=== PATIENT | male | born 1960 | race Caucasian/White ===

== ENCOUNTER 2021-12-24 08:43 | Outpatient (REF) | payer MEDICARE, MEDICAID, SELFPAY ==
[2021-12-24 08:57] LABS: MANUAL DIFF FLAG NO
[2021-12-24 09:13] LABS: Basophils Absolute Auto 0.1 X10*3/uL (0.0-0.2); Basophils Percent Auto 0.8 % (0-2); Eosinophils Absolute Auto 0.1 X10*3/uL (0.0-0.4); Eosinophils Percent Auto 2.1 % (0-4); Hematocrit 46.1 % (42.0-52.0); Hemoglobin 15.1 g/dl (14.0-18.0); Imm Gran Abs Auto 0.02 X10*3/uL (0.00-0.03); Imm Gran Pct Auto 0.3 % (0.0-0.4); Lymphocytes Absolute Auto 1.3 X10*3/uL (1.2-4.9); Lymphocytes Percent Auto 20.5 % (20-40); Mean Corpuscular HGB Conc 32.8 g/dl (31.0-36.0); Mean Corpuscular Hemoglobin 29.3 pg (27.0-33.0); Mean Corpuscular Volume 89.5 fL (80.0-98.0); Mean Platelet Volume 9.6 fL (9.4-12.4); Monocytes Absolute Auto 0.4 X10*3/uL (0.1-1.2); Monocytes Percent Auto 5.9 % (2-11); Neutrophils Absolute Auto 4.4 x10*3/uL (2.0-8.3); Neutrophils Percent Auto 70.4 % (45-73); Platelet Count 263 X10*3/uL (160-400); Red Blood Count 5.15 X10*6/uL (4.60-5.80); Red Cell Distribution Width 11.9 % (11.0-16.0); White Blood Count 6.2 X10*3/uL (4.8-10.8)
[2021-12-24 10:10] LABS: Erythrocyte Sedimentation Rate 3 MM/HR (0-15)
[2021-12-24 10:33] LABS: C Reactive Protein 0.15 mg/dL (< or = 0.50)
== END 2021-12-24 08:44 | disposition home or self-care (01) ==
LOC: HO.LAB 08:43
PROVIDERS: PCP Internal Medicine; Visit Provider Internal Medicine Rheumatology
DX: M47.816 Spondylosis without myelopathy or radiculopathy, lumbar region (principal); M47.812 Spondylosis without myelopathy or radiculopathy, cervical region; M79.7 Fibromyalgia; R53.83 Other fatigue; Z79.899 Other long term (current) drug therapy
CPT/HCPCS: 36415; 85025; 85652; 86140; 99212

== ENCOUNTER 2022-07-18 08:58 | Outpatient (REF) | payer MEDICARE, MEDICAID, SELFPAY | END 2022-07-18 08:59 | disposition home or self-care (01) | LOC: HO.LAB 08:58 | PROVIDERS: Visit Provider Family Medicine | DX: Z13.89 Encounter for screening for other disorder (principal) ==

== ENCOUNTER 2022-07-18 09:28 | Outpatient (REF) | payer MEDICARE, MEDICAID, SELFPAY ==
--- NOTE | ~2022-07-18 | XR_ITS ---
EXAMINATION: XR CHEST CLINICAL INFORMATION: Chest pain. COMPARISON: None TECHNIQUE: 2 views of the chest were obtained. FINDINGS: No significant abnormality is noted involving the heart, lungs, mediastinum, bony thorax or soft tissues. XR/XR chest 2V IMPRESSION: No acute cardiopulmonary process.
== END 2022-07-18 09:29 | disposition home or self-care (01) ==
LOC: HO.HMGCX 09:28
PROVIDERS: PCP Internal Medicine; Visit Provider Family Medicine
DX: R09.89 Other specified symptoms and signs involving the circulatory and respiratory systems (principal); R05.9 Cough, unspecified; R07.9 Chest pain, unspecified; Z20.822 Contact with and (suspected) exposure to COVID-19
CPT/HCPCS: 0241U; 71046

== ENCOUNTER 2022-07-18 11:21 | Outpatient (REF) | payer MEDICARE, MEDICAID, SELFPAY ==
[2022-07-18 12:29] LABS: Influenza A PCR NEGATIVE (Negative); Influenza B PCR NEGATIVE (Negative); Resp Syncy Virus RNA Qual PCR POSITIVE (Negative); SARS COV2 PCR INHOUSE NEGATIVE (Negative)
== END 2022-07-18 11:22 | disposition home or self-care (01) ==
LOC: HO.LNP 11:21
PROVIDERS: Visit Provider Family Medicine
DX: Z13.89 Encounter for screening for other disorder (principal)
CPT/HCPCS: 0241U

== ENCOUNTER → 2022-09-15 08:01 | Outpatient (BNVA) | payer MEDICARE, MEDICAID, SELFPAY | PROVIDERS: PCP Internal Medicine; Visit Provider Internal Medicine Rheumatology | DX: M47.816 Spondylosis without myelopathy or radiculopathy, lumbar region (principal); M79.7 Fibromyalgia; M47.812 Spondylosis without myelopathy or radiculopathy, cervical region; M45.9 Ankylosing spondylitis of unspecified sites in spine; Z86.69 Personal history of other diseases of the nervous system and sense organs; Z79.899 Other long term (current) drug therapy | CPT/HCPCS: 36415; 85025; 85652; 86140; 86481; 99212 ==

== ENCOUNTER 2022-09-15 08:43 | Outpatient (REF) | payer MEDICARE, MEDICAID, SELFPAY ==
[2022-09-15 10:43] LABS: MANUAL DIFF FLAG NO
[2022-09-15 10:55] LABS: Basophils Absolute Auto 0.1 X10*3/uL (0.0-0.2); Basophils Percent Auto 0.9 % (0-2); Eosinophils Absolute Auto 0.1 X10*3/uL (0.0-0.4); Eosinophils Percent Auto 1.8 % (0-4); Hematocrit 45.8 % (42.0-52.0); Hemoglobin 15.5 g/dl (14.0-18.0); Imm Gran Abs Auto 0.02 X10*3/uL (0.00-0.03); Imm Gran Pct Auto 0.3 % (0.0-0.4); Lymphocytes Absolute Auto 1.6 X10*3/uL (1.2-4.9); Lymphocytes Percent Auto 23.1 % (20-40); Mean Corpuscular HGB Conc 33.8 g/dl (31.0-36.0); Mean Corpuscular Hemoglobin 30.7 pg (27.0-33.0); Mean Corpuscular Volume 90.7 fL (80.0-98.0); Mean Platelet Volume 10.8 fL (9.4-12.4); Monocytes Absolute Auto 0.5 X10*3/uL (0.1-1.2); Monocytes Percent Auto 7.1 % (2-11); Neutrophils Absolute Auto 4.5 x10*3/uL (2.0-8.3); Neutrophils Percent Auto 66.8 % (45-73); Platelet Count 231 X10*3/uL (160-400); Red Blood Count 5.05 X10*6/uL (4.60-5.80); Red Cell Distribution Width 12.2 % (11.0-16.0); White Blood Count 6.8 X10*3/uL (4.8-10.8)
[2022-09-15 11:25] LABS: C Reactive Protein < 0.10 mg/dL (< or = 0.50)
[2022-09-15 11:38] LABS: Erythrocyte Sedimentation Rate 1 MM/HR (0-15)
[2022-09-18 12:03] LABS: TS Negative Control Passed; TS Panel A 0; TS Panel B 0; TS Positive Control Passed; TSpotTB Negative (Negative)
== END 2022-09-15 08:44 | disposition home or self-care (01) ==
LOC: HO.10HDL 08:43
PROVIDERS: Visit Provider Internal Medicine Rheumatology
DX: Z13.89 Encounter for screening for other disorder (principal)
CPT/HCPCS: 36415; 85025; 85652; 86140; 86481

== ENCOUNTER 2023-03-16 08:02 | Outpatient (AMB) | payer MEDICARE, MEDICAID, SELFPAY ==
[2023-03-16 08:09] VITALS: BP 110/60; PULSE 80; TEMP 36.6; O2SAT 100; BMI 21.6
--- NOTE | 2023-03-16 08:09 | A.OFFVIS_ITS ---
Intake Vital Signs 3 03/16/23 08:09 Height 5 ft 6 in Weight 133 lb 9.602 oz BMI 21.6 BP 110/60 Blood Pressure Location Lt brachial Position Sitting Pulse 80 Pulse Source Pulse Oximeter Temp 98 F Temp Source Skin Pulse Oximetry (%) 100 Oxygen Delivery Method Room Air Intake Visit Reasons: as Intake Note: Patient is here for follow up. Discharge Planner Required: No Accompanied by: Self / Same As Patient Allergies duloxetine [From Cymbalta] Allergy (Intermediate, Verified 03/16/23 08:13) increased pain HPI HPI Comments 2 History of Present Illness0 Details The patient returns for evaluation of his ankylosing spondylitis, fibromyalgia, and osteoarthritis involving the cervical and lumbar spine. He says overall his pains have been worse in early February. He had developed some painful swelling of the left 3rd MCP region. He had a small cyst there before. He did visit the urgent care at [place]. The ER note was reviewed. They questioned gout and or infection; prednisone was prescribed. Eventually he saw the PCP who prescribed antibiotics and prednisone and the pain and drainage resolved. It does not sound like there was any aspiration of the area or laboratory examination of the fluid. There is some still some slight swelling and a cystic structure present there. He did see hand surgery and excision of the cystic structure is planned for June. There is no pain there now. He is now back on the Enbrel for about 3 weeks. The neck and back pain worsened when he was off it. He has had no recent ocular symptoms to suggest iritis. [facility] Medical History (Updated 03/16/23 @ 20:03 by Milan Valerio MD) Ankylosing spondylitis Fatigue BPH (benign prostatic hyperplasia) GERD (gastroesophageal reflux disease) Hypertension History of iritis Fibromyalgia Osteoarthritis of lumbar spine Cervical osteoarthritis Spondylarthritis Family History Mother Hypertension Father Hypertension Diabetes Sister Hypertension Social History Household Members: Spouse Housing: House Are you a primary care manager cna to a significant other at home: No Do you presently have visiting nurse or other home services: No 75 years or older and lives alone: No Alcohol intake: never Patient Tobacco Use Status: Former Tobacco user Years Smoked: Quit 1997 e-Cigarette/Vaping Use: Never Used service: No Current occupational status: retired and disabled Review of Systems Const Details: Negative for appetite change, weight change, fever, chills, malaise and fatigue Eyes Details: Negative for vision change, dry eyes,headaches and dizziness ENT Details: Negative for hearing change, tinnitus, oral ulcer, nose bleeds and oral dryness. Card Details: Negative chest pain, edema and syncope Resp Details: Negative for SOB, cough and wheezing GI Details: Negative indigestion/heartburn, nausea, abdominal pain, bowel changes, diarrhea, constipation and bloody stool. Skin/Breast Details: Negative for itching, rash, hives, Raynaud's symptoms, sun sensitivity, and skin cancer Neuro Details: Negative for epilepsy, palsy, stroke, changes in speech, tingling and weakness Psych Details: Negative for anxiety, depression and stress Endo Details: Negative for polyuria and polydypsia Levi/Lymph Details: Negative for excessive bruising or bleeding. Physical Exam Vital Signs: Last Vital Signs Temp 98 F 03/16/23 08:09 Pulse 80 03/16/23 08:09 BP 110/60 03/16/23 08:09 Pulse Ox 100 03/16/23 08:09 Oxygen Delivery Method Room Air 03/16/23 08:09 BMI result Body Mass Index 21.6 APPEARANCE: Patient in no acute distress EYES no redness, pupils equal and reactive to light, eyelids normal EXTREMITIES: No edema, no calf tenderness, normal peripheral pulses. JOINT EXAM: Cervical Spine:.? Mild pain discomfort with lateral flexion at 10 degrees or rotation at 45 degrees to either side.? Some slight cervical muscle tenderness. Thoracic Spine:.? No scoliosis.? No tenderness on palpation. Lumbar Spine:.? Alignment normal.? Mild pain with more than 45 degrees of flexion.? There is some left paraspinal muscle spasm.? No tenderness over the vertebral spines.? Straight leg raising on left causes buttock and thigh pain at about 30 degrees. Chest Wall:.? No tenderness, swelling, increased warmth or erythema. Hands: Right: Normal pain-free range of motion. There is some slight nontender bony enlargement at the thumb IP and the 2nd 3rd PIP joints. No soft tissue swelling or triggering. Elsewhere there is no tenderness, swelling, increased warmth or erythema. Able to make a full fist and has a good loss prevention auditor strength. Left: Pain-free range of motion of the joints. There is nontender bony enlargement at the thumb IP and the 2nd and 3rd PIP joints. Over the 3rd MCP there is a cystic structure. This seems to be mobile and free from connection with the joint structures. It is not tender. There is no drainage or redness evident today. Other joints are without swelling or tenderness. Photograph of the left hand: Wrists:.? Normal pain-free range of motion without tenderness, swelling, increased warmth or erythema. Elbows:. Normal pain-free range of motion without tenderness, swelling, increased warmth or erythema. Shoulders:.?? Full range of motion without pain. No tenderness, weakness, swelling, increased warmth or erythema. Hips:.? Full range of motion with some buttock and lumbar pain at the extremes of internal or external rotation in either hip. No groin pain with motion. Hip bursa:.? No tenderness. Knees:.?? Normal pain-free range of motion without tenderness, swelling, increased warmth or erythema.? There is no effusion or crepitation Ankles:.? Normal pain-free range of motion without tenderness, swelling, increased warmth or erythema. Feet:.? Normal pain-free range of motion without tenderness, swelling, increased warmth or erythema. Tender points:? Mild tenderness to digital palpation at the lateral epicondyles, trapezius, second rib, greater trochanter and gluteal area bilaterally. ?? Results Reviewed Results Reviewed: February 07 lab work from [facility]: White count 11.5, hemoglobin 14.4, creatinine 1.0, uric acid 5.9 February 07 x-ray reported as showing some soft tissue swelling but no bony changes. Assessment & Plan Assessment & Plan (1) Osteoarthritis of lumbar spine: Code(s): M47.816 - Spondylosis without myelopathy or radiculopathy, lumbar region (2) History of iritis: Comment: Recurrent episodes; none since Enbrel Code(s): Z86.69 - Personal history of other diseases of the nervous system and sense organs (3) Cervical osteoarthritis: Code(s): M47.812 - Spondylosis without myelopathy or radiculopathy, cervical region (4) Long-term use of immunosuppressant medication: Code(s): Z79.899 - Other skilled nursing (current) drug therapy (5) Dermoid inclusion cyst: Code(s): L72.0 - Epidermal cyst (6) Ankylosing spondylitis: Comment: History of recurrent iritis. Questionable sacroiliitis on SI joint films but there was some SI joint bone edema on MRI. 2013 Enbrel started with some improvement Code(s): M45.9 - Ankylosing spondylitis of unspecified sites in spine Plan Ankylosing spondylitis with some worsening of some of his symptoms related to having to stop the Enbrel. This was because of a cystic structure in the left hand that looked infected. This could be a gouty tophus although it has pretty much subsided at this point. The greater likelihood is that this was an inclusion cyst in the skin or tendon that became infected. It will be surgically explored apparently in June so we may get a more definitive answer. Lab work at the time showed minimal elevation of the white count and a normal uric acid. He does not recall any prior episodes of gout although he did have swelling and pain in the right elbow in the past. At one point xrays showed some osteoarthritis. His widespread fatigue and muscle pains continue. We think this is due to his fibromyalgia. The cervical and lumbar pain of course also is likely due to his underlying osteoarthritis. When he does have the surgery I told him to hold the Enbrel the week before and not to restart it until the stitches were out and there were no signs of local infection. Coding Level of Care Code Est Pt Level 4 (76703) Diagnoses Osteoarthritis of lumbar spine M47.816 History of iritis Z86.69 Cervical osteoarthritis M47.812 Long-term use of immunosuppressant medication Z79.899 Dermoid inclusion cyst L72.0 Ankylosing spondylitis M45.9
== END 2023-03-16 08:32 | disposition home or self-care (01) ==
PROVIDERS: PCP Internal Medicine; Visit Provider Internal Medicine Rheumatology
DX: M47.816 Spondylosis without myelopathy or radiculopathy, lumbar region (principal); Z86.69 Personal history of other diseases of the nervous system and sense organs; M47.812 Spondylosis without myelopathy or radiculopathy, cervical region; Z79.899 Other long term (current) drug therapy; L72.0 Epidermal cyst; M45.9 Ankylosing spondylitis of unspecified sites in spine
CPT/HCPCS: 99214

== ENCOUNTER → 2023-03-16 08:02 | Outpatient (BNVA) | payer MEDICARE, MEDICAID, SELFPAY | PROVIDERS: PCP Internal Medicine; Visit Provider Internal Medicine Rheumatology | DX: M47.816 Spondylosis without myelopathy or radiculopathy, lumbar region (principal); M47.812 Spondylosis without myelopathy or radiculopathy, cervical region; L72.0 Epidermal cyst; M45.9 Ankylosing spondylitis of unspecified sites in spine; Z79.899 Other long term (current) drug therapy; Z86.69 Personal history of other diseases of the nervous system and sense organs | CPT/HCPCS: 99212 ==

== ENCOUNTER 2023-08-25 11:09 | Outpatient (AMB) | payer MEDICARE, MEDICAID, SELFPAY ==
[2023-08-25 11:22] VITALS: BP 144/82; PULSE 86; TEMP 36.4; O2SAT 97; BMI 22.1
--- NOTE | 2023-08-25 11:22 | MHC.OFFVIS ---
Intake Vital Signs 08/25/23 11:22 Height 5 ft 6 in Weight 137 lb 2.04 oz BMI 22.1 BP 144/82 H Blood Pressure Location Rt brachial Position Sitting Pulse 86 Pulse Source Pulse Oximeter Temp 97.6 F Temp Source Skin Pulse Oximetry (%) 97 Oxygen Delivery Method Room Air Intake Visit Reasons: Intake Note: Patient last seen by Dr Valerio on 03/16/23 presents today for follow up. Online Content Editor Required: No Accompanied by: Self / Same As Patient Allergies duloxetine [From Cymbalta] Allergy (Intermediate, Verified 08/25/23 11:29) increased pain Medication List - Last Reconciled 08/25/23 by Crystal Vargas MD acetaminophen (Tylenol Extra Strength) 1,000 mg PO Q6H PRN alfuzosin ER 10 mg PO DAILY atropine 1% drps ophthalmic (eye) azelastine 1 spray intranasal BID cyclobenzaprine 10 mg PO BEDTIME difluprednate 0.05% drps ophthalmic (eye) etanercept (Enbrel SureClick) 50 mg subcut QWEEK famotidine 20 mg PO DAILY lisinopril 2.5 mg PO DAILY lisinopril 10 mg PO DAILY oxycodone-acetaminophen 5-325 mg (Percocet) 1.5 tabs PO DAILY tamsulosin 0.4 mg PO DAILY tobramycin 0.3% drps ophthalmic (eye) HPI HPI Comments History of Present Illness Details 62-year-old male with ankylosing spondylitis returns for follow-up. Patient stated that the swelling on his left 3rd MCP self-resolved and surgical exploration was canceled. He states that he was doing well overall until July when he developed an upper respiratory tract infection and was quite sick. He held his Enbrel for about 6 weeks. For 2 or 3 weeks now he has been having worsening generalized pain in his neck, lower back, hips. Two weeks ago he was having significant left elbow pain to the point that he could not hold a coffee cup. About a week ago he started having right eye pain and photosensitivity. He was just evaluated by police academy program coordinator yesterday and prescribed steroid eyedrops. He is wearing sunglasses today. He just restarted his Enbrel a week ago Most recent history by Dr. Valerio 03/2023: The patient returns for evaluation of his ankylosing spondylitis, fibromyalgia, and osteoarthritis involving the cervical and lumbar spine. He says overall his pains have been worse in early February. He had developed some painful swelling of the left 3rd MCP region. He had a small cyst there before. He did visit the urgent care at [place]. The ER note was reviewed. They questioned gout and or infection; prednisone was prescribed. Eventually he saw the PCP who prescribed antibiotics and prednisone and the pain and drainage resolved. It does not sound like there was any aspiration of the area or laboratory examination of the fluid. There is some still some slight swelling and a cystic structure present there. He did see hand surgery and excision of the cystic structure is planned for June. There is no pain there now. He is now back on the Enbrel for about 3 weeks. The neck and back pain worsened when he was off it. He has had no recent ocular symptoms to suggest iritis. [facility] Medical History Ankylosing spondylitis Fatigue BPH (benign prostatic hyperplasia) GERD (gastroesophageal reflux disease) Hypertension History of iritis Fibromyalgia Osteoarthritis of lumbar spine Cervical osteoarthritis Spondylarthritis Family History Mother Hypertension Father Hypertension Diabetes Sister Hypertension Social History Household Members: Spouse Housing: House Are you a primary health care recruiter to a significant other at home: No Do you presently have visiting nurse or other home services: No 75 years or older and lives alone: No Alcohol intake: never Patient Tobacco Use Status: Former Tobacco user Years Smoked: Quit 1997 e-Cigarette/Vaping Use: Never Used service: No Current occupational status: retired and disabled Review of Systems Eyes Reports blurry vision, Reports eye pain and Reports photophobia ENT Reports neck pain Musc Reports back pain, Reports arthralgias, Reports limited range of motion and Reports neck pain Physical Exam Vital Signs: Last Vital Signs Temp 97.6 F 08/25/23 11:22 Pulse 86 08/25/23 11:22 BP 144/82 H 08/25/23 11:22 Pulse Ox 97 08/25/23 11:22 Oxygen Delivery Method Room Air 08/25/23 11:22 BMI result Body Mass Index 22.1 Const General: cooperative, healthy appearing and comfortable Nutritional Appearance: average body habitus Orientation/consciousness: patient oriented x3 Limitations: no limitations HEENT Head: Yes normocephalic and Yes atraumatic Mouth: moist mucous membranes Eyes Other: Right eye erythema around the iris Direct Ophthalmoscopy: photophobia Resp Effort & Inspection: normal respiratory effort and able to speak in complete sentences Auscultation: clear to auscultation bilaterally Cardio Rate: regular rate Skin General skin exam: no rashes or lesions noted Neuro General: patient oriented x3 Extrem Other: Mild tenderness at the left common extensor origin at the left lateral epicondyle No active synovitis otherwise Some neck pain with neck flexion to the right Mildly limited lateral flexion test bilaterally Augusto test 10-15 cm Bilateral straight leg raise test causes ipsilateral hip pain Bilateral ANGELA test causes ipsilateral hip pain Assessment & Plan Assessment & Plan (1) Ankylosing spondylitis: Comment: History of recurrent iritis. Questionable sacroiliitis on SI joint films but there was some SI joint bone edema on MRI. 2013 Enbrel started with some improvement Code(s): M45.9 - Ankylosing spondylitis of unspecified sites in spine Qualifiers: Ankylosing spondylitis location: multiple sites in spine Qualified Code(s): M45.0 - Ankylosing spondylitis of multiple sites in spine Plan: 62-year-old male with ankylosing spondylitis presents for follow-up. He used to follow-up with Dr. Valerio. This is his 1st visit with me. Patient had an upper respiratory tract infection back in July of 2023 and held Enbrel for about 6 weeks with resultant flare up of his arthritis and flare up of right eye iritis last week. His respiratory infection resolved. He just restarted his Enbrel a week ago. Advised patient to continue with Enbrel weekly. Labs before next visit in 2 months (2) History of iritis: Comment: Recurrent episodes; none since Enbrel, flare 08/2023 in the context of holding Enbrel due to URTI Code(s): Z86.69 - Personal history of other diseases of the nervous system and sense organs Plan: Flare of right eye iritis, started last week, recently evaluated by police academy program coordinator and started on steroid eyedrops. Hopefully once patient is back on Enbrel regularly, this will improve.. Can consider switching to Humira if there is no improvement (3) Long-term use of immunosuppressant medication: Code(s): Z79.899 - Other termite technician (current) drug therapy Plan: Will monitor safety labs and Infectious screening labs before next visit Plan I spent 35 minutes reviewing patient's chart, evaluating patient, ordering diagnostic workup, counseling patient and documenting in the chart Orders: Orders Complete Blood Count Auto Diff 2 Months M45.9 - Ankylosing spondylitis of unspecified sites in spine Comprehensive Met. Panel 2 Months M45.9 - Ankylosing spondylitis of unspecified sites in spine C Reactive Protein 2 Months M45.9 - Ankylosing spondylitis of unspecified sites in spine Erythrocyte Sedimentation Rate 2 Months M45.9 - Ankylosing spondylitis of unspecified sites in spine Hepatitis A,B,C Profile 2 Months Z11.59 - Encounter for screening for other viral diseases T Spot TB 2 Months Z11.7 - Encounter for testing for latent tuberculosis infection HLA B27 2 Months M45.9 - Ankylosing spondylitis of unspecified sites in spine, Z86.69 - Personal history of other diseases of the nervous system and sense organs Coding Level of Care Code Est Pt Level 4 (94834) Diagnoses Ankylosing spondylitis of multiple sites in spine M45.0 Ankylosing spondylitis location: multiple sites in spine History of iritis Z86.69 Long-term use of immunosuppressant medication Z79.899
== END 2023-08-25 11:48 | disposition home or self-care (01) ==
PROVIDERS: PCP Internal Medicine; Visit Provider Student in an Organized Health Care Education/Training Program
DX: M45.0 Ankylosing spondylitis of multiple sites in spine (principal); Z86.69 Personal history of other diseases of the nervous system and sense organs; Z79.899 Other long term (current) drug therapy
CPT/HCPCS: 99214

== ENCOUNTER → 2023-08-25 11:09 | Outpatient (BNVA) | payer MEDICARE, MEDICAID, SELFPAY | PROVIDERS: PCP Internal Medicine; Visit Provider Student in an Organized Health Care Education/Training Program | DX: M45.0 Ankylosing spondylitis of multiple sites in spine (principal); Z86.69 Personal history of other diseases of the nervous system and sense organs; Z79.899 Other long term (current) drug therapy | CPT/HCPCS: 99212 ==

== ENCOUNTER 2023-10-22 09:28 | Outpatient (REF) | payer MEDICARE, MEDICAID, SELFPAY ==
[2023-10-22 10:02] LABS: MANUAL DIFF FLAG NO
[2023-10-22 10:37] LABS: Basophils Absolute Auto 0.1 X10*3/uL (0.0-0.2); Basophils Percent Auto 1.1 % (0-2); Eosinophils Absolute Auto 0.1 X10*3/uL (0.0-0.4); Eosinophils Percent Auto 1.5 % (0-4); Hematocrit 47.3 % (42.0-52.0); Hemoglobin 16.1 g/dl (14.0-18.0); Imm Gran Abs Auto 0.02 X10*3/uL (0.00-0.03); Imm Gran Pct Auto 0.3 % (0.0-0.4); Lymphocytes Absolute Auto 1.8 X10*3/uL (1.2-4.9); Lymphocytes Percent Auto 27.7 % (20-40); Mean Corpuscular Hemoglobin 30.6 pg (27.0-33.0); Mean Corpuscular Volume 89.9 fL (80.0-98.0); Mean Platelet Volume 9.9 fL (9.4-12.4); Monocytes Absolute Auto 0.5 X10*3/uL (0.1-1.2); Monocytes Percent Auto 7.3 % (2-11); Neutrophils Percent Auto 62.1 % (45-73); Platelet Count 253 X10*3/uL (160-400); Red Blood Count 5.26 X10*6/uL (4.60-5.80); Red Cell Distribution Width 11.9 % (11.0-16.0); White Blood Count 6.5 X10*3/uL (4.8-10.8)
[2023-10-22 11:17] LABS: Alanine Aminotransferase 17 U/L (0-40); Albumin Level 4.7 g/dL (3.5-5.0); Alkaline Phosphatase 70 U/L (39-117); Anion Gap 10 (12-20); Aspartate Amino Transferase 24 U/L (5-37); Blood Urea Nitrogen 12 mg/dL (9-16); C Reactive Protein 0.12 mg/dL (< or = 0.50); Calcium 10.2 mg/dL (8.4-10.2); Carbon Dioxide 30 mmol/L (22-29); Chloride 107 mmol/L (96-108); Estimated Glomerular Filt Rate > 60; Glucose Random 86 mg/dL (60-115); Potassium 4.1 mmol/L (3.3-5.1); Sodium 143 mmol/L (135-145); Total Protein 7.5 g/dL (6.5-8.0)
[2023-10-22 11:21] LABS: Erythrocyte Sedimentation Rate 2 MM/HR (0-15)
[2023-10-22 11:33] LABS: HBS Num1 0.15 mIU/mL (0-7.99); HBc Num1 0.08 S/CO (0.00-0.79); HBsAGNum1 0.35 S/CO (0.00-0.99); Hepatitis A Antibody IgM 0.12 Index (0-0.79); Hepatitis B Core Antibody Nonreactive (Nonreactive); Hepatitis B Surface Antigen Negative (Negative); ~HepC Num1 0.13 S/CO (0.00-0.79); ~Hepatitis A Antibody IgM Nonreactive (Nonreactive); ~Hepatitis B Surface Antibody NONREACTIVE (Nonreactive); ~Hepatitis C Antibody Nonreactive (Nonreactive)
[2023-10-25 12:58] LABS: TS Negative Control Passed; TS Panel A 0; TS Panel B 0; TS Positive Control Passed; TSpotTB Negative (Negative)
[2023-10-27 22:14] LABS: HLA B27 Positive (Negative)
== END 2023-10-22 09:29 | disposition home or self-care (01) ==
LOC: HO.LAB 09:28
PROVIDERS: PCP Internal Medicine; Visit Provider Student in an Organized Health Care Education/Training Program
DX: Z11.59 Encounter for screening for other viral diseases (principal); Z11.7 Encounter for testing for latent tuberculosis infection; M45.9 Ankylosing spondylitis of unspecified sites in spine; Z72.89 Other problems related to lifestyle; Z86.69 Personal history of other diseases of the nervous system and sense organs
CPT/HCPCS: 36415; 80053; 85025; 85652; 86140; 86481; 86704; 86706; 86709; 86803; 86812; 87340

== ENCOUNTER 2023-11-02 14:10 | Outpatient (AMB) | payer MEDICARE, MEDICAID, SELFPAY ==
[2023-11-02 14:28] VITALS: BP 138/82; PULSE 86; O2SAT 97; BMI 22.4
--- NOTE | 2023-11-02 14:28 | MHC.OFFVIS ---
Vital Signs 11/02/23 14:28 Height 5 ft 6 in Weight 138 lb 14.259 oz BMI 22.4 BP 138/82 Blood Pressure Location Rt brachial Position Sitting Pulse 86 Pulse Source Pulse Oximeter Pulse Oximetry (%) 97 Oxygen Delivery Method Room Air Intake Visit Reasons: Intake Note: Patient last seen 08/25/23 presents today for follow up and test results. L elbow pain Project Account Manager Required: No Accompanied by: Self / Same As Patient Allergies duloxetine [From Cymbalta] Allergy (Intermediate, Verified 11/02/23 14:34) increased pain Medication List - Last Reconciled 11/02/23 by Crystal Vargas MD acetaminophen (Tylenol Extra Strength) 1,000 mg PO Q6H PRN alfuzosin ER 10 mg PO DAILY atropine 1% drps ophthalmic (eye) azelastine 1 spray intranasal BID cyclobenzaprine 10 mg PO BEDTIME difluprednate 0.05% drps ophthalmic (eye) etanercept (Enbrel SureClick) 50 mg subcut QWEEK famotidine 20 mg PO DAILY finasteride 5 mg PO DAILY lisinopril 10 mg PO DAILY oxycodone-acetaminophen 5-325 mg (Percocet) 1.5 tabs PO DAILY tobramycin 0.3% drps ophthalmic (eye) HPI Comments Details: 62-year-old male with ankylosing spondylitis returns for follow-up. He has been on Enbrel regularly weekly for at least 10 weeks now. States that he is doing better overall. Back to his baseline. Has been having bilateral elbow pain a little worse on the left. Associated with burning and sensitivity. He also gets recurrent low back pain and right hip pain. Was evaluated by portable machine sander today, had a dilated eye exam and was told no steroid eyedrops are needed at that point. Most recent history by Dr. Valerio 03/2023: The patient returns for evaluation of his ankylosing spondylitis, fibromyalgia, and osteoarthritis involving the cervical and lumbar spine. He says overall his pains have been worse in early February. He had developed some painful swelling of the left 3rd MCP region. He had a small cyst there before. He did visit the urgent care at [place]. The ER note was reviewed. They questioned gout and or infection; prednisone was prescribed. Eventually he saw the PCP who prescribed antibiotics and prednisone and the pain and drainage resolved. It does not sound like there was any aspiration of the area or laboratory examination of the fluid. There is some still some slight swelling and a cystic structure present there. He did see hand surgery and excision of the cystic structure is planned for June. There is no pain there now. He is now back on the Enbrel for about 3 weeks. The neck and back pain worsened when he was off it. He has had no recent ocular symptoms to suggest iritis. [facility] Medical History Ankylosing spondylitis Fatigue BPH (benign prostatic hyperplasia) GERD (gastroesophageal reflux disease) Hypertension History of iritis Fibromyalgia Osteoarthritis of lumbar spine Cervical osteoarthritis Spondylarthritis Family History Mother Hypertension Father Hypertension Diabetes Sister Hypertension Social History Household Members: Spouse Housing: House Are you a primary customer care manager to a significant other at home: No Do you presently have visiting nurse or other home services: No 75 years or older and lives alone: No Alcohol intake: never Patient Tobacco Use Status: Former Tobacco user Years Smoked: Quit 1997 e-Cigarette/Vaping Use: Never Used service: No Current occupational status: retired and disabled Review of Systems Eyes Reports photophobia Musc Reports back pain, Reports arthralgias and Reports limited range of motion Physical Exam Vital Signs: Last Vital Signs Pulse 86 11/02/23 14:28 BP 138/82 11/02/23 14:28 Pulse Ox 97 11/02/23 14:28 Oxygen Delivery Method Room Air 11/02/23 14:28 BMI result Body Mass Index 22.4 Const General: cooperative, healthy appearing and comfortable Nutritional Appearance: average body habitus Orientation/consciousness: patient oriented x3 Limitations: no limitations HEENT Head: Yes normocephalic and Yes atraumatic Mouth: moist mucous membranes Eyes Other: No eye erythema bilaterally today Direct Ophthalmoscopy: photophobia Resp Effort & Inspection: normal respiratory effort and able to speak in complete sentences Auscultation: clear to auscultation bilaterally Cardio Rate: regular rate Skin General skin exam: no rashes or lesions noted Neuro General: patient oriented x3 Extrem Other: tenderness at the common extensor origin at the lateral epicondyle bilaterally with negative resisted wrist extension and negative resisted wrist flexion test. No swelling No active synovitis otherwise Mildly limited lateral flexion test bilaterally Augusto test 10-14 cm Bilateral straight leg raise test causes ipsilateral hip pain Negative Lisa test bilaterally Assessment & Plan Assessment & Plan (1) Ankylosing spondylitis: Comment: + HLA b27. Recurrent iritis. Questionable sacroiliitis on SI joint films but there was some SI joint bone edema on MRI. 2014 Enbrel started with some improvement Code(s): M45.9 - Ankylosing spondylitis of unspecified sites in spine Category: Medical Qualifiers: Ankylosing spondylitis location: multiple sites in spine Qualified Code(s): M45.0 - Ankylosing spondylitis of multiple sites in spine Plan: 62-year-old male with ankylosing spondylitis presents for follow-up. On Enbrel regularly. Doing quite well. He has a few tender joints but no swollen joints. Inflammatory markers are normal. Iritis episode resolved. Nothing to warrant any change in therapy. Continue with Enbrel 50 mg subcutaneously weekly. Flexeril refilled Labs before next visit in 4 months (2) History of iritis: Comment: Recurrent episodes; none since Enbrel, flare 08/2023 in the context of holding Enbrel due to URTI improved with steroid eyedrops Code(s): Z86.69 - Personal history of other diseases of the nervous system and sense organs Category: Medical Plan: Improved with steroid eyedrops. (3) Long-term use of immunosuppressant medication: Code(s): Z79.899 - Other half-way (current) drug therapy Category: Medical Plan: Hepatitis panel and T spot test negative 10/2023 Plan I spent 30 minutes reviewing patient's chart, evaluating patient, ordering diagnostic workup, counseling patient and documenting in the chart Orders: Orders C Reactive Protein 4 Months M45.0 - Ankylosing spondylitis of multiple sites in spine Erythrocyte Sedimentation Rate 4 Months M45.0 - Ankylosing spondylitis of multiple sites in spine Complete Blood Count Auto Diff 4 Months M45.0 - Ankylosing spondylitis of multiple sites in spine Comprehensive Met. Panel 4 Months M45.0 - Ankylosing spondylitis of multiple sites in spine Medications: Changed From cyclobenzaprine 10 mg PO BEDTIME To cyclobenzaprine orally bedtime PRN; take 1-2 tabs nightly as needed for muscle spasm 60 tabs 2RF muscle spasm Coding Level of Care Code Est Pt Level 4 (91959) Diagnoses Ankylosing spondylitis of multiple sites in spine M45.0 Ankylosing spondylitis location: multiple sites in spine History of iritis Z86.69 Long-term use of immunosuppressant medication Z79.891
== END 2023-11-02 14:54 | disposition home or self-care (01) ==
PROVIDERS: PCP Internal Medicine; Visit Provider Student in an Organized Health Care Education/Training Program
DX: M45.0 Ankylosing spondylitis of multiple sites in spine (principal); Z86.69 Personal history of other diseases of the nervous system and sense organs; Z79.899 Other long term (current) drug therapy
CPT/HCPCS: 99214

== ENCOUNTER → 2023-11-02 14:10 | Outpatient (BNVA) | payer MEDICARE, MEDICAID, SELFPAY | PROVIDERS: PCP Internal Medicine; Visit Provider Student in an Organized Health Care Education/Training Program | DX: M45.0 Ankylosing spondylitis of multiple sites in spine (principal); Z86.69 Personal history of other diseases of the nervous system and sense organs; Z79.899 Other long term (current) drug therapy | CPT/HCPCS: 99212 ==

== ENCOUNTER 2024-03-04 14:26 | Outpatient (REF) | payer MEDICARE, MEDICAID, SELFPAY ==
[2024-03-04 14:38] LABS: MANUAL DIFF FLAG NO
[2024-03-04 15:12] LABS: Basophils Absolute Auto 0.1 X10*3/uL (0.0-0.2); Basophils Percent Auto 0.7 % (0-2); Eosinophils Absolute Auto 0.1 X10*3/uL (0.0-0.4); Hematocrit 42.8 % (42.0-52.0); Hemoglobin 14.3 g/dl (14.0-18.0); Imm Gran Abs Auto 0.02 X10*3/uL (0.00-0.03); Imm Gran Pct Auto 0.2 % (0.0-0.4); Lymphocytes Absolute Auto 1.5 X10*3/uL (1.2-4.9); Lymphocytes Percent Auto 14.9 % (20-40); Mean Corpuscular HGB Conc 33.4 g/dl (31.0-36.0); Mean Corpuscular Hemoglobin 30.9 pg (27.0-33.0); Mean Corpuscular Volume 92.4 fL (80.0-98.0); Mean Platelet Volume 10.4 fL (9.4-12.4); Monocytes Absolute Auto 0.6 X10*3/uL (0.1-1.2); Monocytes Percent Auto 5.6 % (2-11); Neutrophils Absolute Auto 7.8 x10*3/uL (2.0-8.3); Neutrophils Percent Auto 77.6 % (45-73); Platelet Count 262 X10*3/uL (160-400); Red Blood Count 4.63 X10*6/uL (4.60-5.80); Red Cell Distribution Width 11.9 % (11.0-16.0)
[2024-03-04 15:35] LABS: Alanine Aminotransferase 15 U/L (0-40); Albumin Level 4.3 g/dL (3.5-5.0); Alkaline Phosphatase 74 U/L (39-117); Anion Gap 13 (12-20); Aspartate Amino Transferase 22 U/L (5-37); Blood Urea Nitrogen 10 mg/dL (9-16); C Reactive Protein 3.03 mg/dL (< or = 0.50); Calcium 9.9 mg/dL (8.4-10.2); Carbon Dioxide 26 mmol/L (22-29); Chloride 104 mmol/L (96-108); Estimated Glomerular Filt Rate > 60; Glucose Random 92 mg/dL (60-115); Sodium 139 mmol/L (135-145); Total Protein 7.1 g/dL (6.5-8.0)
[2024-03-04 16:18] LABS: Erythrocyte Sedimentation Rate 14 MM/HR (0-15)
== END 2024-03-04 14:27 | disposition home or self-care (01) ==
LOC: HO.LAB 14:26
PROVIDERS: Visit Provider Student in an Organized Health Care Education/Training Program
DX: M45.0 Ankylosing spondylitis of multiple sites in spine (principal)
CPT/HCPCS: 36415; 80053; 85025; 85652; 86140

== ENCOUNTER 2024-07-07 07:49 | Outpatient (AMB) | payer MEDICARE, MEDICAID, SELFPAY ==
--- NOTE | 2024-07-07 07:51 | A.OFFVIS_ITS ---
Vital Signs 07/07/24 07:56 Height 5 ft 6 in Weight 135 lb 9.349 oz BMI 21.9 BP 132/80 Blood Pressure Location Rt brachial Position Sitting Pulse 83 Pulse Source Pulse Oximeter Pulse Oximetry (%) 98 Oxygen Delivery Method Room Air Intake Visit Reasons: Intake Note: Patient presents for . Allergies duloxetine [From Cymbalta] Allergy (Intermediate, Verified 07/07/24 07:55) increased pain Medication List - Last Reconciled 07/07/24 by Crystal Vargas MD acetaminophen (Tylenol Extra Strength) 1,000 mg PO Q6H PRN alfuzosin ER 10 mg PO DAILY atropine 1% drps ophthalmic (eye) azelastine 1 spray intranasal BID cyclobenzaprine 5 - 10 mg (1 - 2 x 5 mg) PO BEDTIME PRN difluprednate 0.05% drps ophthalmic (eye) Enbrel SureClick (etanercept) 50 mg subcut QWEEK NS famotidine 20 mg PO DAILY finasteride 5 mg PO DAILY lisinopril 10 mg PO DAILY oxycodone-acetaminophen 5-325 mg (Percocet) 1.5 tabs PO DAILY tobramycin 0.3% drps ophthalmic (eye) HPI Comments Details: 63-year-old male with ankylosing spondylitis returns for follow-up. Remains on Enbrel weekly regularly. States that he has been doing reasonably well overall. No recent episode of iritis. Continues to have intermittent muscle aches, headaches, neck pain. Most recent history by Dr. Valerio 03/2023: The patient returns for evaluation of his ankylosing spondylitis, fibromyalgia, and osteoarthritis involving the cervical and lumbar spine. He says overall his pains have been worse in early February. He had developed some painful swelling of the left 3rd M CP region. He had a small cyst there before. He did visit the urgent care at [facility]. The ER note was reviewed. They questioned gout and or infection; prednisone was prescribed. Eventually he saw the PCP who prescribed antibiotics and prednisone and the pain and drainage resolved. It does not sound like there was any aspiration of the area or laboratory examination of the fluid. There is some still some slight swelling and a cystic structure present there. He did see hand surgery and excision of the cystic structure is planned for June. There is no pain there now. He is now back on the Enbrel for about 3 weeks. The neck and back pain worsened when he was off it. He has had no recent ocular symptoms to suggest iritis. [facility] Medical History Ankylosing spondylitis Fatigue BPH (benign prostatic hyperplasia) GERD (gastroesophageal reflux disease) Hypertension History of iritis Fibromyalgia Osteoarthritis of lumbar spine Cervical osteoarthritis Spondylarthritis Family History Mother Hypertension Father Hypertension Diabetes Sister Hypertension Social History Household Members: Spouse Housing: House Are you a primary geriatric personal care aide to a significant other at home: No Do you presently have visiting nurse or other home services: No 75 years or older and lives alone: No Alcohol intake: never Patient Tobacco Use Status: Former Tobacco user Years Smoked: Quit 1997 e-Cigarette/Vaping Use: Never Used service: No Current occupational status: retired and disabled Review of Systems Eyes Reports photophobia ENT Reports neck pain Musc Reports myalgias, Reports arthralgias and Reports neck pain Physical Exam Vital Signs: Last Vital Signs Pulse 83 07/07/24 07:56 BP 132/80 07/07/24 07:56 Pulse Ox 98 07/07/24 07:56 Oxygen Delivery Method Room Air 07/07/24 07:56 BMI result Body Mass Index 21.9 Const General: cooperative, healthy appearing and comfortable Nutritional Appearance: average body habitus Orientation/consciousness: patient oriented x3 Limitations: no limitations HEENT Head: Yes normocephalic and Yes atraumatic Mouth: moist mucous membranes Eyes Other: No eye erythema bilaterally today Direct Ophthalmoscopy: photophobia Resp Effort & Inspection: normal respiratory effort and able to speak in complete sentences Auscultation: clear to auscultation bilaterally Cardio Rate: regular rate Skin General skin exam: no rashes or lesions noted Neuro General: patient oriented x3 Extrem Other: No active synovitis noted today Assessment & Plan Assessment & Plan (1) Ankylosing spondylitis: Comment: + HLA b27. Recurrent iritis. Questionable sacroiliitis on SI joint films but there was some SI joint bone edema on MRI. 2013 Enbrel started with some improvement Code(s): M45.9 - Ankylosing spondylitis of unspecified sites in spine Category: Medical Qualifiers: Ankylosing spondylitis location: multiple sites in spine Qualified Code(s): M45.0 - Ankylosing spondylitis of multiple sites in spine Plan: 63-year-old male with ankylosing spondylitis presents for follow-up. On Enbrel regularly. Doing well overall. No active synovitis on exam. No symptoms suggestive of active iritis Continue with Enbrel 50 mg subcutaneously weekly. Labs before next visit in 6 months (2) Long-term use of immunosuppressant medication: Code(s): Z79.899 - Other skilled nursing (current) drug therapy Category: Medical Plan: Side effects of Enbrel were discussed with the patient in detail including increased risk of infection, demyelinating disease, reactivation of latent TB, possible increased risk of solid and skin tumors. Patient fully aware. Advised patient to seek medical care KHURRAM if patient has an infection and advised patient to stop the medication until the infection is resolved. (3) Fibromyalgia: Comment: Dx 1994, tried on SSRI, welbutrin, Provigil (insurance will not cover), Nata gave him headaches Some improvement with Cymbalta 30bid (10/12-02/11) but developed headache and stopped it. Savella not Helpful 2008 Code(s): M79.7 - Fibromyalgia Category: Medical Plan: Discussed management of fibromyalgia with patient. Is a noninflammatory, non- autoimmune central afferent processing disorder leading to a diffuse pain syndrome. I suggested that patient try to address his underlying psychiatric issues, anxiety/depression. I suggested evaluation by a therapist and/or a psychiatrist. \ Try to follow sleep hygiene practices. Consider a referral for a sleep study from PCP to rule out DAVID. Patient would benefit from increased physical activity, either through formal physical therapy or by joining a gym. Advised patient that she should start activity slowly and increase as tolerated. Patient walks for 20 minutes daily. Gets achy if he walks anymore than that. Advised patient to consider some light weight exercises such as light weights, aquatherapy, swimming Plan I spent 30 minutes reviewing patient's chart, evaluating patient, ordering diagnostic workup, counseling patient and documenting in the chart Orders: Orders C Reactive Protein 6 Months M45.0 - Ankylosing spondylitis of multiple sites in spine Erythrocyte Sedimentation Rate 6 Months M45.0 - Ankylosing spondylitis of multiple sites in spine Hepatitis A,B,C Profile 6 Months Z11.59 - Encounter for screening for other viral diseases T Spot TB 6 Months Z11.7 - Encounter for testing for latent tuberculosis infection Complete Blood Count Auto Diff 6 Months M45.0 - Ankylosing spondylitis of multiple sites in spine Comprehensive Met. Panel 6 Months M45.0 - Ankylosing spondylitis of multiple sites in spine Coding Level of Care Code Est Pt Level 4 (69472) Complex EM visit Add On G2211 Diagnoses Ankylosing spondylitis of multiple sites in spine M45.0 Ankylosing spondylitis location: multiple sites in spine Long-term use of immunosuppressant medication Z79.899 Fibromyalgia M79.7
[2024-07-07 07:56] VITALS: BP 132/80; PULSE 83; O2SAT 98; BMI 21.9
== END 2024-07-07 08:18 | disposition home or self-care (01) ==
PROVIDERS: PCP Internal Medicine; Visit Provider Student in an Organized Health Care Education/Training Program
DX: M45.0 Ankylosing spondylitis of multiple sites in spine (principal); Z79.899 Other long term (current) drug therapy; M79.7 Fibromyalgia
CPT/HCPCS: 99214; G2211

== ENCOUNTER → 2024-07-07 07:49 | Outpatient (BNVA) | payer MEDICARE, MEDICAID, SELFPAY | PROVIDERS: PCP Internal Medicine; Visit Provider Student in an Organized Health Care Education/Training Program | DX: M45.0 Ankylosing spondylitis of multiple sites in spine (principal); M79.7 Fibromyalgia; Z79.899 Other long term (current) drug therapy | CPT/HCPCS: 99212 ==

== ENCOUNTER 2024-12-13 14:23 | Outpatient (REF) | payer MEDICARE, MEDICAID, SELFPAY ==
[2024-12-13 14:42] LABS: MANUAL DIFF FLAG NO
[2024-12-13 14:52] LABS: Basophils Absolute Auto 0.1 X10*3/uL (0.0-0.2); Eosinophils Absolute Auto 0.1 X10*3/uL (0.0-0.4); Eosinophils Percent Auto 1.7 % (0-4); Hematocrit 42.1 % (42.0-52.0); Hemoglobin 14.7 g/dl (14.0-18.0); Imm Gran Abs Auto 0.02 X10*3/uL (0.00-0.03); Imm Gran Pct Auto 0.3 % (0.0-0.4); Lymphocytes Absolute Auto 1.7 X10*3/uL (1.2-4.9); Lymphocytes Percent Auto 23.5 % (20-40); Mean Corpuscular HGB Conc 34.9 g/dl (31.0-36.0); Mean Corpuscular Volume 88.8 fL (80.0-98.0); Mean Platelet Volume 10.2 fL (9.4-12.4); Monocytes Absolute Auto 0.5 X10*3/uL (0.1-1.2); Neutrophils Absolute Auto 4.7 x10*3/uL (2.0-8.3); Neutrophils Percent Auto 66.5 % (45-73); Platelet Count 216 X10*3/uL (160-400); Red Blood Count 4.74 X10*6/uL (4.60-5.80); Red Cell Distribution Width 11.7 % (11.0-16.0); White Blood Count 7.1 X10*3/uL (4.8-10.8)
[2024-12-13 15:30] LABS: Erythrocyte Sedimentation Rate 2 MM/HR (0-15)
[2024-12-13 15:35] LABS: Alanine Aminotransferase 24 U/L (0-40); Albumin Level 4.6 g/dL (3.5-5.0); Alkaline Phosphatase 64 U/L (39-117); Anion Gap 12 (12-20); Aspartate Amino Transferase 25 U/L (5-37); Bilirubin Total 0.5 mg/dL (0.0-1.0); Blood Urea Nitrogen 12 mg/dL (9-16); C Reactive Protein < 0.10 mg/dL (< or = 0.50); Calcium 9.5 mg/dL (8.4-10.2); Carbon Dioxide 28 mmol/L (22-29); Chloride 106 mmol/L (96-108); Estimated Glomerular Filt Rate > 60; Glucose Random 94 mg/dL (60-115); Potassium 4.2 mmol/L (3.3-5.1); Sodium 142 mmol/L (135-145); Total Protein 6.8 g/dL (6.5-8.0)
--- OUTSIDE RECORDS SUMMARY | 2024-12-13 17:22 | XMS_ITS | Clinical Summary ---
Author Organization [facility] [address] [facility] Address [address] [place] [address] Phone Care Team Providers Care Inspector Aligning Name Role Phone Vick Choi MD Primary Care Provider [phone] Allergies Active Allergy Reactions Criticality Noted Date Comments Duloxetine Headache 04/06/2009 After 3 months - better with DC of drug Medications alfuzosin (UROXATRAL) 10 mg 24 hr tablet Take 1 Tablet by mouth daily. 4 Active azelastine (ASTELIN) 137 mcg (0.1 %) nasal spray 1 [place] by Each Nare route daily. 9 Active cyclobenzaprine (FLEXERIL) 10 mg tablet TAKE 1 TO 2 TABLETS BY MOUTH AT BEDTIME NEEDED FOR MUSCLE SPASMS 4 Active EnbreL SureClick 50 mg/mL (1 mL) injection pen ADMINISTER 1 ML UNDER THE SKIN 1 TIME A WEEK 9 Active famotidine (PEPCID) 20 mg tablet Take 20 mg by mouth daily. Active finasteride (PROSCAR) 5 mg tablet Take 1 Tablet by mouth daily. 4 Active fluticasone HFA (Flovent HFA) 110 mcg/actuation inhaler Inhale 2 Puffs into the lungs 2 times daily. 9 Active lisinopriL (PRINIVIL,ZESTR IL) 10 mg tablet TAKE 1 TABLET BY MOUTH EVERY DAY 90 tablet 1 5 Active oxyCODONE-aceta minophen (PERCOCET) 5-325 mg per tablet Take 1 tablet by mouth every 6 (six) hours if needed for severe pain. Max Daily Amount: 4 tablets 50 tablet 5 Active Active Problems Problem Noted Date Diagnosed Date Elevated PSA 02/11/2024 Overview (05/26/2024): Minimally elevated PSA, under the setting of BPH, following with urology Dr. 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 Questionable sacroiliitis on SI joint films and some SI joint bone edema on MRI. 2013 Enbrel started with some improvement HTN (hypertension) 11/02/2012 Cervical osteoarthritis 11/05/2010 Generalized headaches 03/06/2009 Esophageal reflux 08/03/2006 Overview (05/26/2024): See note 08/18/17 Fibromyalgia 08/03/2006 Overview (05/26/2024): Dx 1994, tried on SSRI, welbutrin, Provigil (insurance will not cover), Lyrica gave him headaches Some improvement with Cymbalta 30bid (10/12-02/11) but devleoped headache and stopped it.Savella not Helpful 2009 Hypertrophy of prostate without urinary obstruct ion 07/10/2006 Overview (05/26/2024): Not responding to terazosin and flomax Chest pain 01/08/2006 Overview (05/26/2024): ETT (-) 2006 Encounters Date Type Department Care Team Description 11/24/2024 9:45 AM EDT Office Visit Adult Medicine [address] [phone] Vick Choi MD Chest pain, unspecified type (Primary Dx); Rapid heart beat 09/19/2024 10:30 AM EDT Ancillary Procedure [facility] [address] [place] [address] Chest pain, unspecified type; Tachycardia from Last 3 Months Immunizations Name Administration Dates Next Due PPD Test 09/02/2016,08/29/2013 Td Tetanus diptheria (Tdvax) 7yo and older 07/30,02/18/2005 Tdap Tetanus diptheria acell ular pertussis (Boostrix; Adacel) 7yo and older 12/31/2011 Surgical History Surgery Date Site/Laterality Comments COLONOSCOPY 03/09/12 PROCEDURE: HISTORICAL COLONOSCOPY; COMMENT: hemorrhoids; repeat in ten yrs CATARACT EXTRACTION 2013 PROCEDURE: HISTORICAL CATARACT REMOVAL; COMMENT: bilateral OTHER SURGICAL HISTORY 07/20 PROCEDURE: MO BIOPSY PROSTATE INCISIONAL ANY APPROACH; COMMENT: negative ROTATOR CUFF REPAIR -1989 Right PROCEDURE: HISTORICAL ROTATOR CUFF REPAIR Medical History Medical History Date Comments Chest pain, unspecified 01/08/2006 DX:Chest pain, unspecified Esophageal reflux DX:Esophageal reflux; COMMENT: H pylori (-) Myalgia and myositis, unspecified 08/03/2006 DX:Myalgia and myositis, unspecified; COMMENT: Dx 1994, tried on SSRI, welbutrin, provagil (insurance will not cover), lyrica Hypertrophy of prostate with out urinary obstruction and other lower urinary tract symptoms (LUTS) 07/10/2006 DX:Hypertrophy of prosta te without urinary obstruction and other lower urinary tract symptoms (LUTS) Chest pain, unspecified 01/08/2006 DX:Chest pain, unspecified; COMMENT: ETT (-) 2005 Myalgia and myositis, unspecified 08/03/2006 DX:Myalgia and myositis, unspecified; COMMENT: Dx 1994, tried on SSRI, welbutrin, provagil (insurance will not cover), lyrica Some improvement with Cymbalta 30bid (10/12) Cervical osteoarthritis 11/05/2010 DX:Cervi alba osteoarthritis HTN (hypertension) DX:HTN (hyper tension) History of iritis 08/15/2013 DX:History of iritis; COMMENT: Recurrent since 2012 Family History Medical History Relation Name Comments Diabetes Father Hypertension Father Hypertension Mother Hypertension Sister 1 Hypertension Sister 2 Relation Name Status Comments Father Alive Mother Alive Sister 1 Sister 2 Sister 3 Alive Social History Tobacco Use Types Packs/Day Years Used Date Smoking Tobacco: Former Smokeless Tobacco: Never Tobacco Cessation:Counseling Given: Not Answered Alcohol Use Standard Drinks/Week Comments No 0 (1 standard drink = 0.6 oz pur e alcohol) Housing Instability Answer Date Recorde d Are you worried that in the next 2 months you may not have stable housing? No 07/08/2024 Food Access & Nutrition Answer Date Rec orded Do you have access to a vari ety of food including fruits and vegetables? Yes 07/08/2024 Access to Healthcare Answer Date Record ed Within the last 3 months, ho w many times did you visit the emergency department for your medical care? 1 07/08/2024 Health Literacy Answer Date Recorded How often do you need to hav e someone help you when you read instructions, pamphlets, or other written material from your doctor or pharmacy? Never 07/08/2024 Caregiver: How often do you need to have someone help you when you read instructions, pamphlets, or other written material from your doctor or pharmacy? Not on file 07/08/2024 Financial Risk Answer Date Recorded How hard is it for you to pa y for the very basics like food, housing, medical care, and air conditioning / heating? Patient declined 07/08/2024 Transportation Answer Date Recorded Has the lack of transportati on kept you from meetings, work, or from getting things needed for daily living? No Has the lack of transportati on kept you from medical appointments or from getting medications? No 07/08/2024 Social Isolation Answer Date Recorded How often do you feel lonely or isolated from th ose around you? Never 07/08/2024 Food Risk Answer Date Recorded Within the past 12 months we worried whether our food would run out before we got money to buy more. Never true 07/08/2024 Within the past 12 months th e food we bought just didn't last and we didn't have money to get more. Never true 07/08/2024 Dependent Care Answer Date Recorded Do you need help finding or paying for care for your loved ones. For example, children's ministry director or elderly care for an older adult? No 07/08/2024 Education Answer Date Recorded Do you think completing more education or training, like finishing a GED, going to college, or learning a trade, would be helpful for you? No 07/08/2024 Employment and Income Answer Date Recor ded During the last four weeks, have you been actively looking for work? Unable to respond 07/08/2024 Living Situation Answer Date Recorded What is your living situation? 0 07/08/2024 Sex and Gender Information Value Date Recorded Sex Assigned at Male 06/16/2024 3:55 PM EST Legal Sex Male 10:20 AM EST Gender Identity Male 06/16/2024 3:55 PM EST Sexual Orientation Straight 06/16/2024 3: 55 PM EST Obstetrics History Last Filed Vital Signs Vital Sign Reading Time Taken Comments Blood Pressure 126/82 11/24/2024 9:38 AM EDT Pulse 70 11/24/2024 9:38 AM EDT Temperature 36.3 ??C (97.3 ??F) 11/24/2024 9:38 AM ED T Respiratory Rate 20 11/24/2024 9:38 AM EDT Oxygen Saturation 98% 08/25/2024 1:35 PM EST Inhaled Oxygen Concentration - - Weight 63 kg (139 lb) 11/24/2024 9:38 AM EDT Height 167.6 cm (5' 6 ) 11/24/2024 9:38 AM EDT Body Mass Index 22.44 11/24/2024 9:38 AM EDT Plan of Treatment Upcoming Encounters Date Type Department Care Team (Late st Contact Info) Description 02/24/2025 11:15 AM EDT Office Visit Adult Medicine [facility] [address] [place] [phone] Vick Choi MD [address] [place] [address] Health Maintenance Due Date Last Done Comments COVID-19 Vaccine (#1) 1965 Pneumococcal Vaccine: 50+ Years (1 of 1 - PCV) 12/15/2011 Zoster Vaccines (1 of 2) 12/15/2011 DTaP,Tdap,and Td Vaccines (4 - Td or Tdap) 12/30/2021 12/31/2011, 07/30/2008, 02/18/2005 Colorectal Cancer Screening: Colonoscopy 06/14/2022 HIV Screening 06/14/2022 Medicare Annual Wellness Visit 06/14/2022 Influenza Vaccine (Season Ended) 2025 Depression Screening 07/08/2025 07/08/2024 Social Influencers of Health Screening 07/08/2025 07/08/2024 Hypertension/CHF/CAD Annual BMP Blood Test 07/14/2025 07/14/2024, 02/02/2024, 02/02/2024 Cholesterol Screening (Lipid Panel) 07/18/2026 07/18/2021 RSV Immunization Adult Patients (1 - 1-dose 75+ series) 2036 Hepatitis C Screening Completed 09/20/2013 HIB Vaccines Aged Out No longer eligi ble based on patient's age to complete this topic HPV Vaccines Aged Out No longer eligi ble based on patient's age to complete this topic Hepatitis A Vaccines Aged Out No long er eligible based on patient's age to complete this topic Hepatitis B Vaccines Aged Out No long er eligible based on patient's age to complete this topic IPV Vaccines Aged Out No longer eligi ble based on patient's age to complete this topic MMR Vaccines Aged Out No longer eligi ble based on patient's age to complete this topic Meningococcal ACWY Vaccine Aged Out N o longer eligible based on patient's age to complete this topic Meningococcal B Vaccine Aged Out No l onger eligible based on patient's age to complete this topic Pneumococcal Vaccine: Pediatrics (0 to 5 Years) and At-Risk Patients (6 to 64 Years) Aged Out No longer eligible b ased on patient's age to complete this topic RSV Immunization Patients Under 20 months Aged Out No longer eligible b ased on patient's age to complete this topic Varicella Vaccines Aged Out No longer eligible based on patient's age to complete this topic Procedures Procedure Name Priority Date/Time Associated Diagnosis Comments TRANSTHORACIC ECHOCARDIOGRAM (TTE) COMPLETE Routine 09/19/2024 11:15 AM EDT Chest pain, unspecified type Tachycardia COMPREHENSIVE METABOLIC PANEL Routine 07/14/2024 12:01 PM EST Tachycardia Routine general medical examination at a health care facility LIPID PANEL Routine 07/18/2021 HM HEPATITIS C SCREENING Routine 09/20/2013 from Last 3 Months or Most Recently Relevant to Health Maintenance Results * (ABNORMAL) TRANSTHORACIC ECHOCARDIOGRAM (TTE) COMPLETE (09/19/2024 11:15 AM EDT) Left Atrium Minor [place] 5.0 cm CV PACS Left Atrium Major [place] 4.5 cm CV PACS LA Area Sys (A2C) 11 cm2 CV PACS LA Area Sys (A4C) 12 cm2 CV PACS LA Volume (BP) 26 mL CV PACS LA Size 3.3 cm CV PACS RA Area 10.8 cm2 CV PACS RA 2D Volume 20 mL CV PACS AV Mean Gradient 3 mmHg CV PACS AV Mean Gradient 3 mmHg CV PACS Ao VTI 22.4 cm CV PACS AV Peak Jacinto 1.3 m/s CV PACS AV Peak Gradient 7 mmHg CV PACS AV Area Continuity Equation 2.4 cm2 CV PACS AV Area Peak Velocity 2.3 cm2 CV PACS Aortic Arch 2.8 cm CV PACS Ascending Aorta 3.2 cm CV PACS Aortic Sinus Valsalva 3.5 cm CV PACS IVC Proximal 1.0 cm CV PACS IVSD 1.0 0.6 - 1.0 cm CV PACS LVIDD 4.4 4.2 - 5.8 cm CV PACS LVIDS 2.7 2.5 - 4.0 cm CV PACS LVOT Diameter 2.0 cm CV PACS LVOT Mean Jacinto 0.6 m/s CV PACS LVOT Mean Grad 2 mmHg CV PACS LVOT Mean Grad 2 mmHg CV PACS LVOT Peak VTI 17.1 cm CV PACS LVOT Peak Jacinto 1.0 m/s CV PACS LVOT Peak Gradient 4 mmHg CV PACS LVPWD 1.0 0.6 - 1.0 cm CV PACS MV E' Tissue Velocity Lateral 11 cm/s CV PACS MV E' Tissue Velocity Septal 7 cm/s CV PACS LVOT Area 3.1 cm2 CV PACS LVOT Stroke Volume 54 mL CV PACS MV Deceleration Cataño 3.7 m/s2 CV PACS E Wave Deceleration Time 155 119 - 242 ms CV PACS MV PHT 46 ms CV PACS MV Peak A Jacinto 0.70 m/s CV PACS MV Peak E Jacinto 0.59 m/s CV PACS MV Mean Gradient 1 mmHg CV PACS MV Mean Gradient 1 mmHg CV PACS MV Mean Gradient 1 mmHg CV PACS MV Mean Gradient 1 mmHg CV PACS MV VTI 23.1 cm CV PACS Mitral Valve Max Velocity 0.9 m/s CV PACS MV Peak Gradient 3 mmHg CV PACS MV Area PHT 4.8 cm2 CV PACS MV Area Continuity Equation 2.3 cm2 CV PACS PV Acceleration Time 130 ms CV PACS PV Mean Gradient 1 mmHg CV PACS PV Mean Gradient 1 mmHg CV PACS PV VTI 16.7 cm CV PACS PV Peak Velocity 0.9 m/s CV PACS PV Peak Gradient 3 mmHg CV PACS RV Diastolic Basal Dimension 3.2 2.5 - 4.1 cm CV PACS RV S' 11 cm/s CV PACS TAPSE 18 mm CV PACS E/E' Ratio Septal 8 CV PACS E/E' Ratio Averaged 7 CV PACS Relative Wall Thickness ratio 0.45 CV PACS LVOT:AV VTI Index 0.76 CV PACS FS 39 % CV PACS LV Mass 2D 148 g CV PACS MV VTI:LVOT VTI ratio 1.4 CV PACS LVOT flow 188 mL/s CV PACS AV Velocity Ratio 0.77 CV PACS E/A Ratio 0.8 CV PACS E/E' Ratio Lateral 5 CV PACS BSA 1.7 m2 CV PACS LA Volume Index (BP) 15 mL/m2 CV PACS LVIDD Index 2.59 cm/m2 CV PACS LVIDS Index 1.59 cm/m2 CV PACS LV Mass Index 2D 87 50 - 102 g/m2 CV PACS LVOT Stroke Index 32 mL/m2 CV PACS LA Dimension Index 2D 1.9 cm/m2 CV PACS RA 2D Volume Index 12(A) 18 - 32 mL/m2 CV PACS NEREIDA Index (VTI) 1.41 cm2/m2 CV PACS NEREIDA Index (Pk Jacinto) 1.35 cm2/m2 CV PACS Ascending Aorta Index 1.88 cm/m2 CV PACS Est. RA Pressure 3 mmHg CV PACS Anatomical Region Laterality Modality Ultrasound Narrative 09/19/2024 4:43 PM EDT ?Left ventricle cavity size is normal. Left ventricular systolic function is in the normal range with an ejection fraction of 65-70%. ?No regional LV wall motion abnormalities noted. ?Left ventricle wall thickness is normal. ?Right ventricle cavity is normal. ?Aortic valve leaflets are mildly thickened. ?Trace mitral insufficiency Left Ventricle Left ventricle cavity size is normal. Wall thickness is normal. Systolic function is normal with an ejection fraction of 65-70%. There are no regional LV wall motion abnormalities. There is abnormal septal motion. Right Ventricle Right ventricle cavity appears normal. Left Atrium Left atrium cavity size is normal. Right Atrium Right atrium cavity is normal. IVC/SVC Inferior vena cava structure is normal. RA pressures is estimated to be 3 mmHg (IVC diameter <21 mm and decreases >50% during inspiration). Mitral Valve The leaflets are mildly thickened. There is mild annular calcification. There is trace regurgitation. There is no evidence of mitral valve stenosis. Tricuspid Valve Tricuspid valve structure is normal. There is no significant regurgitation. Cannot assess RVSP. Aortic Valve The aortic valve is trileaflet. The leaflets are mildly thickened. There is no regurgitation or stenosis. Pulmonic Valve No significant pulmonic valve regurgitation. Ascending Aorta The aorta appears normal in size. Pericardium Pericardium appears normal. There is no pericardial effusion. Study Details Overall the study quality was adequate. Vick Choi MD CV ECHO PROCEDURES Final Result * Comprehensive metabolic panel (07/14/2024 12:01 PM EST) Sodium 141 133 - 145 mmol/L LAB CHEMISTRY METHOD 07/14/2024 6:16 PM [facility] Potassium 3.9 3.5 - 5.5 mmol/L LAB CHEMISTRY METHOD 07/14/2024 6:16 PM [facility] Chloride 107 96 - 110 mmol/L LAB CHEMISTRY METHOD 07/14/2024 6:16 PM [facility] CO2 28 21 - 32 mmol/L LAB CHEMISTRY METHOD 07/14/2024 6:16 PM [facility] Anion Gap 6 3 - 11 LAB CHEMISTRY METHOD 07/14/2024 6:16 PM [facility] Glucose 99 70 - 100 mg/dL LAB CHEMISTRY METHOD 07/14/2024 6:16 PM [facility] BUN 12 5 - 25 mg/dL LAB CHEMISTRY METHOD 07/14/2024 6:16 PM [facility] Creatinine 0.87 0.70 - 1.30 mg/dL LAB CHEMISTRY METHOD 07/14/2024 6:16 PM [facility] eGFR 98 >=60 mL/min/1. 73m2 LAB CHEMISTRY METHOD 07/14/2024 6:16 PM [facility] Comment:Calculation based on the??Chronic Kidney Disease Epidemiology Collaboration (CKD-EPI) equation refit??without adjustment for race. BUN/Creatinine Ratio 13.8 LAB CHEMISTRY METHOD 07/14/2024 6:16 PM [facility] Calcium 9.4 8.5 - 10.5 mg/dL LAB CHEMISTRY METHOD 07/14/2024 6:16 PM [facility] AST (SGOT) 20 10 - 42 unit/L LAB CHEMISTRY METHOD 07/14/2024 6:16 PM [facility] ALT (SGPT) 21 10 - 60 unit/L LAB CHEMISTRY METHOD 07/14/2024 6:16 PM [facility] Alkaline Phosphatase 66 42 - 121 unit/L LAB CHEMISTRY METHOD 07/14/2024 6:16 PM [facility] Total Protein 7.1 6.0 - 8.0 g/dL LAB CHEMISTRY METHOD 07/14/2024 6:16 PM [facility] Albumin 4.5 3.2 - 5.0 g/dL LAB CHEMISTRY METHOD 07/14/2024 6:16 PM [facility] Total Bilirubin 0.9 0.0 - 1.4 mg/dL LAB CHEMISTRY METHOD 07/14/2024 6:16 PM [facility] Blood Venous blood specimen / Unknown Venipuncture / Unknown 07/14/2024 12:01 PM EST 07/14/2024 12:01 PM EST Vick Choi MD LAB BLOOD ORDERABLES Final Resul t [facility] [address] [place] [address], * Lipid panel (07/18/2021) LDL/HDL Ratio 2 0 - 4 Triglycerides 38 0 - 150 mg/dL Cholesterol 150 0 - 200 mg/dL HDL 64 >=40 mg/dL LDL Cholesterol 79 0 - 100 mg/dL Blood Venous blood specimen / Unknown Dee Morgan MD LAB BLOOD ORDERABLES Mae l Result * Hepatitis C Screening (09/20/2013) Pathologist [facility] Hepatitis C Screening abstracted Historical Provider HEALTH MAINTENANCE Final Result from Last 3 Months or Most Recently Relevant to Health Maintenance Insurance MEDICARE [place] Care Teams Inspector Aligning Relationship Specialty Start Date End Date Vick Choi MD [address] [facility] [place] [address] PCP - General 05/05/1999
[2024-12-14 08:20] LABS: HBc Num1 0.06 S/CO (0.00-0.79); HBsAGNum1 0.37 S/CO (0.00-0.99); Hepatitis A Antibody IgM 0.15 Index (0-0.79); Hepatitis B Core Antibody Nonreactive (Nonreactive); Hepatitis B Surface Antigen Negative (Negative); ~HepC Num1 0.16 S/CO (0.00-0.79); ~Hepatitis A Antibody IgM Nonreactive (Nonreactive); ~Hepatitis B Surface Antibody NONREACTIVE (Nonreactive); ~Hepatitis C Antibody Nonreactive (Nonreactive)
[2024-12-16 20:09] LABS: TS Negative Control Passed; TS Panel A 0; TS Panel B 0; TS Positive Control Passed; TSpotTB Negative (Negative)
== END 2024-12-13 14:24 | disposition home or self-care (01) ==
LOC: HO.LAB 14:23
PROVIDERS: PCP Internal Medicine; Visit Provider Student in an Organized Health Care Education/Training Program
DX: M45.0 Ankylosing spondylitis of multiple sites in spine (principal)
CPT/HCPCS: 36415; 80053; 85025; 85652; 86140; 86481; 86704; 86706; 86709; 86803; 87340

== ENCOUNTER 2025-01-11 08:50 | Outpatient (AMB) | payer MEDICARE, MEDICAID, SELFPAY ==
--- NOTE | 2025-01-11 09:00 | A.OFFVIS_ITS ---
Vital Signs 01/11/25 09:04 Height 5 ft 6 in Weight 133 lb 9.602 oz BMI 21.6 BP 115/72 Blood Pressure Location Lt brachial Position Sitting Pulse 93 Pulse Source Pulse Oximeter Pulse Oximetry (%) 98 Oxygen Delivery Method Room Air Intake Visit Reasons: Intake Note: Patient presents for follow up. Allergies duloxetine (From Cymbalta) Allergy (Intermediate, Verified 01/11/25 09:03) increased pain Medication List - Last Reconciled 01/11/25 by Edna Borden MD acetaminophen (Tylenol Extra Strength) 1,000 mg PO Q6H PRN alfuzosin ER 10 mg PO DAILY azelastine 1 spray intranasal BID cyclobenzaprine 5 - 10 mg (1 - 2 x 5 mg) PO BEDTIME PRN Enbrel SureClick (etanercept) 50 mg subcut QWEEK NS famotidine 20 mg PO DAILY finasteride 5 mg PO DAILY lisinopril 10 mg PO DAILY oxycodone-acetaminophen 5-325 mg (Percocet) 1.5 tabs PO DAILY HPI Comments Details: Patient is a 64-year-old male with hypertension, GERD, BPH, polyarticular osteoarthritis (especially of the spine: C-spine/L-spine), fibromyalgia and ankylosing spondylitis here today for follow up Interval History: Patient last seen 07/[address] Vargas. - reasonably well overall - no iritis - intermittent muscle aches and neck pain - no changes to medication Today, - No change overall - Last saw opthal 07/2024, no evidence of iritis - Continues to have widespread pain and headaches Rheumatologic History: + HLA b27. Recurrent iritis. Questionable sacroiliitis on SI joint films but there was some SI joint bone edema on MRI. 2014 Enbrel started with some improvement Most recent history by Dr. Valerio 03/2023: The patient returns for evaluation of his ankylosing spondylitis, fibromyalgia, and osteoarthritis involving the cervical and lumbar spine. He says overall his pains have been worse in early February. He had developed some painful swelling of the left 3rd MCP region. He had a small cyst there before. He did visit the urgent care at [place]. The ER note was reviewed. They questioned gout and or infection; prednisone was prescribed. Eventually he saw the PCP who prescribed antibiotics and prednisone and the pain and drainage resolved. It does not sound like there was any aspiration of the area or laboratory examination of the fluid. There is some still some slight swelling and a cystic structure present there. He did see hand surgery and excision of the cystic structure is planned for June. There is no pain there now. He is now back on the Enbrel for about 3 weeks. The neck and back pain worsened when he was off it. He has had no recent ocular symptoms to suggest iritis. Fibromyalgia Dx 1994, tried on SSRI, welbutrin, Provigil (insurance will not cover), Lyrica gave him headaches Some improvement with Cymbalta 30bid (10/12-02/11) but developed headache and stopped it. Savella not Helpful 2008 Current Rheumatology Medication(s): Enbrel 50 mg sc weekly Cyclobenzaprine 5-10 mg nightly PFSH Medical History Ankylosing spondylitis Fatigue BPH (benign prostatic hyperplasia) GERD (gastroesophageal reflux disease) Hypertension History of iritis Fibromyalgia Osteoarthritis of lumbar spine Cervical osteoarthritis Spondylarthritis Family History Mother Hypertension Father Hypertension Diabetes Sister Hypertension Social History Household Members: Spouse Housing: House Are you a primary rn critical care to a significant other at home: No Do you presently have visiting nurse or other home services: No 75 years or older and lives alone: No Alcohol intake: never Patient Tobacco Use Status: Former Tobacco user Years Smoked: Quit 1997 e-Cigarette/Vaping Use: Never Used service: No Current occupational status: retired and disabled Review of Systems Const Details: Review of Systems Constitutional: Denies fever, chills, weight loss ENT: Denies vision changes, eye pain or eye redness, dental caries, dry mouth GI: Denies nausea, vomiting, diarrhea, abdominal pain, change in BM Pulm: Denies SOB, JOSEPH, hemoptysis, wheezing Cards: Denies chest pain, palpitations Skin: Denies Raynaud's, rash, nail changes, photosensitivity, HEARING AID DISPENSER: Denies headaches, weakness, paresthesias, recurrent falls MSK: as per HPI All other systems reviewed and are unremarkable except noted above Physical Exam Vital Signs: Last Vital Signs Pulse 93 07/09/25 09:04 BP 115/72 01/11/25 09:04 Pulse Ox 98 01/11/25 09:04 Oxygen Delivery Method Room Air 01/11/25 09:04 BMI result Body Mass Index 21.6 Vital signs reviewed Physical Examination CONSTITUITIONAL Patient alert and cooperative. Well appearing and in no apparent painful distress HEENT Conjunctiva and sclera clear. No lymphadenopathy. CHEST/RESPIRATORY SYSTEM Normal respiratory effort and able to speak in complete sentences. Clear to auscultation bilaterally. No crackles, rales, rhonchi, wheezes heard. CARDIAC SYSTEM Regular rate and rhythm. S1 and S2 heard no murmurs. Radial pulses intact bilaterally MSK Hands * Right Hand: Able to make a fist. No swelling or tenderness to palpation of these joints. No deformities noted. * Left Hand: Able to make a fist. No swelling or tenderness to palpation of these joints. No deformities noted. * Scattered Herbedens nodes noted bilaterally Wrists * Right Wrist: Full ROM. 70 degrees of wrist flexion, 80 degrees of wrist extens ion. No swelling or TTP * Left Wrist: Full ROM. 70 degrees of wrist flexion, 80 degrees of wrist extension. No swelling or TTP Elbows * Right Elbow: Full ROM. No swelling or TTP. Mild TTP of the lateral epicondyle * Left Elbow: Full ROM. No swelling or TTP. No TTP of the medial and lateral epicondyles Shoulders * Right shoulder: Full ROM. No swelling noted. No TTP of the AC joint, subacromial bursa or posterior shoulder * Left shoulder: Full ROM. No swelling noted. No TTP of the AC joint, subacromial bursa or posterior shoulder Hip bursa: No tenderness to palpation bilaterally Knees * Right knee: Full ROM. No swelling noted. No TTP of the knee joint lie or pes anserine bursa * Left knee: Full ROM. No swelling noted. No TTP of the knee joint lie or pes anserine bursa. Ankles * Right ankle: Good ankle dorsiflexion and plantar flexion. No swelling. No TTP of the ankle joint * Left ankle: Good ankle dorsiflexion and plantar flexion. No swelling. No TTP of the ankle joint Feet * Right foot: Positive squeeze test with TTP of the 1st MTP * Left foot: Negative squeeze test Tender points? * No tenderness to palpation of the bilateral trapezius, supraspinatus, anterior costochondral junctions, bilateral suboccipital muscle insertions SKIN No rashes Results Reviewed Results Reviewed: Laboratory Tests 12/13/24 14:38 WBC 7.1 RBC 4.74 Hgb 14.7 Hct 42.1 Plt Count 216 ESR 2 Sodium 142 Potassium 4.2 Chloride 106 Carbon Dioxide 28 BUN 12 Creatinine 0.80 AST 25 ALT 24 Alkaline Phosphatase 64 C-Reactive Protein < 0.10 Laboratory Tests 10/22/23 10:00 HLA-B27 Positive A Laboratory Tests 12/13/24 14:38 Hepatitis A IgM Ab Nonreactive Hep Bs Antigen Negative Hep Bs Antibody NONREACTIVE Hep B Core Total Ab Nonreactive Hepatitis C Ab (EIA) Nonreactive TB Test (T-Spot) Com Negative Assessment & Plan Assessment & Plan (1) Ankylosing spondylitis: Comment: + HLA b27. Recurrent iritis. Questionable sacroiliitis on SI joint films but there was some SI joint bone edema on MRI. 2013 Enbrel started with some improvement Code(s): M45.9 - Ankylosing spondylitis of unspecified sites in spine Category: Medical Qualifiers: Ankylosing spondylitis location: multiple sites in spine Qualified Code(s): M45.0 - Ankylosing spondylitis of multiple sites in spine Plan: #Ankylosing Spondylitis Patient is a 64 y.o. male with ankylosing spondylitis c/b iritis here today for follow up. Currently in remission based on no active iritis, normal inflammatory markers and no evidence of active synovitis or inflammatory disease on examination Plan - Enbrel 50mg SC every week - RTC 6 months - Labs before visit: CBC, CMP, ESR, CRP (2) Fibromyalgia: Comment: Dx 1994, tried on SSRI, welbutrin, Provigil (insurance will not cover), Lyrica gave him headaches Some improvement with Cymbalta 30bid (10/12-02/11) but developed headache and stopped it. Savella not Helpful 2008 Code(s): M79.7 - Fibromyalgia Category: Medical Plan: #Fibromyalgia Longstanding history of fibromyalgia. Has tried several therapies with no improvement Currently manages pain with percocet and cyclobenzaprine (3) Neck pain: Code(s): M54.2 - Cervicalgia Plan: #Neck pain Patient with known C spine and L spine degenerative disease. Will refer to pain management to see if they can offer any interventions (4) Encounter for monitoring of etanercept therapy: Code(s): Z51.81 - Encounter for therapeutic drug level monitoring; Z79.620 - tank terminal gauger (current) use of immunosuppressive biologic Plan: #Long-term Use of TNF Inhibitors: Enbrel Discussed with the patient the benefits and risks of TNF inhibitors for the management of the rheumatic condition Benefits include reduce pain, maintenance of remission and reduction of flares as well as progression of the disease Risks include injection sites/infusion reactions, serious infections (such as bacterial infections, opportunistic infections), malignancy, delaminating syndromes, autoimmune phenomena, CHF exacerbations, palmar plantar psoriasis and cytopenias Recommended rotating injection sites, and holding medication during and for up to 1 week after resolution of a febrile illness or open skin wound Plan I spent 30 minutes reviewing the record and labs, taking a history, examining the patient, discussing the treatment plan, ordering diagnostic work up and documenting in the medical record Orders: Orders Complete Blood Count Auto Diff 6 Months M45.0 - Ankylosing spondylitis of multiple sites in spine, M79.7 - Fibromyalgia Comprehensive Met. Panel 6 Months M45.0 - Ankylosing spondylitis of multiple sites in spine, M79.7 - Fibromyalgia C Reactive Protein 6 Months M45.0 - Ankylosing spondylitis of multiple sites in spine, M79.7 - Fibromyalgia Erythrocyte Sedimentation Rate 6 Months M45.0 - Ankylosing spondylitis of multiple sites in spine, M79.7 - Fibromyalgia Referrals Pain Management Referral M47.812 - Spondylosis without myelopathy or radiculopathy, cervical region, M47.816 - Spondylosis without myelopathy or radiculopathy, lumbar region Coding Level of Care Code Est Pt Level 4 (58567) Complex EM visit Add On G2211 Diagnoses Ankylosing spondylitis of multiple sites in spine M45.0 Ankylosing spondylitis location: multiple sites in spine Fibromyalgia M79.7 Neck pain M54.2 Encounter for monitoring of etanercept therapy Z51.81; Z79.460
--- OUTSIDE RECORDS SUMMARY | 2025-01-11 09:03 | XMS_ITS | Encounter Summary ---
Author Organization [facility] Address [address] [place] [address] Care Team Providers Care Dedicated Intermodal Truck Driver Name Role Phone Vick Choi MD Primary Care Provider [phone] Encounter Details Date Type Department Care Team Description 06/06/2013 Refill Rheumatology - [address] [address] Milan Valerio MD Social History Tobacco Use Types Packs/Day Years Used Date Smoking Tobacco: Former Comments:1988 Alcohol Use Standard Drinks/Week Comments No 0 (1 standard drink = 0.6 oz pur e alcohol) Sex Assigned at Date Recorded Not on file Job Start Date Occupation Industry Not on file Not on file Not on file documented as of this encounter Miscellaneous Notes * Telephone Encounter - Kaitlin Barrientos L.P.N. - 06/07/2013 10:14 AM EST Script written and is in patient pick-up. * Telephone Encounter - Kaitlin Barrientos L.P.N. - 06/07/2013 8:17 AM EST Controlled substance contract and last issue date of medication reviewed. Patient is due for medication. * Telephone Encounter - Kaitlin Iliana Das - 06/07/2013 8:16 AM ESTFrom: PADMINI AMBROSE JR To: Milan Valerio MD Sent: ThuJun 06, 2013 7:58 PM Subject: Medication Renewal Request Original authorizing provider: MD Padmini Camejo Jr. would like a refill of the following medications: oxycodone-acetaminophen (PERCOCET) 5-325 MG per tablet [Milan Valerio MD] Preferred pharmacy: in office pick-up Comment: documented in this encounter Plan of Treatment Not on file documented as of this encounter Visit Diagnoses Not on filedocumented in this encounter Care Teams Dedicated Intermodal Truck Driver Relationship Specialty Start Date End Date Vick Choi MD [address] [place] [id number] PCP - General 05/05/1999 documented as of this encounter
--- OUTSIDE RECORDS SUMMARY | 2025-01-11 09:03 | XMS_ITS | Clinical Summary ---
Author Organization [employer] Address [address] [facility] [address] [place] [address] Care Team Providers Care Returned Telephone Equipment Appraiser Name Role Phone PcpEric Unassigned Primary Care Provider U navailable Allergies Active Allergy Reactions Criticality Noted Date Comments Duloxetine Hcl 10/20/2022 Other reaction(s): pain in arms Medications etanercept (Enbrel) 50 MG/ML injection 1 mL. Acti ve cyclobenzaprine (Flexeril) 10 MG tablet 1 tablet in the morning and 1 tablet at noon and 1 tablet in the evening. Active azelastine (Astelin) 0.1 % nasal spray 1 puff in the morning and 1 puff in the evening. Active oxyCODONE-aceta minophen (Percocet) 5-325 MG tablet 1 tablet every 6 (six) hours if needed. Active alfuzosin ER (Uroxatral) 10 MG 24 hr tablet Take 10 mg by mouth Once per day. 09/25/2023 Active lisinopril 10 MG tablet Take 1 tablet by mouth Once per day. 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 Overview (11/02/2024): 2023 iritis flare right eye (OD) during lapse in enbrel injections Glaucoma suspect of both eyes 10/20/2022 Vitreous floaters of both eyes 10/20/2022 Lumbosacral spondylosis without myelopathy 07/20 History of iritis 08/15/2013 Overview (10/31/2022): Recurrent episodes; none since Enbrel HTN (hypertension) 11/02/2012 Cervical osteoarthritis 11/05/2010 Fibromyalgia 08/03/2006 Overview (08/24/2023): Dx 1994, tried on SSRI, welbutrin, Provigil (insurance will not cover), Lyrica gave him headaches Some improvement with Cymbalta 30bid (10/12-02/11) but devleoped headache and stopped it.Savella not Helpful 2008 Hypertrophy of prostate without urinary obstruct ion 07/10/2006 Overview (08/24/2023): Not responding to terazosin and flomax Encounters Date Type Department Care Team Description 11/02/2024 8:30 AM EDT Office Visit [facility] OPTOMETRY [address] [place] [address] Kathleen Santos, OD Glaucoma suspect of both eyes (Primary Dx); Presbyopia of both eyes 10/26/2024 Travel 10/13/2024 8:30 AM EDT Office Visit [facility] DENTAL [address] [place], [place] [id number] Tami Lindquist 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 (Primary Dx) from Last 3 Months Family History Medical History Relation Name Comments sister iritis infections Other Relation Name Status Comments Father Mother Other Social History Tobacco Use Types Packs/Day Years Used Date Smoking Tobacco: Former Cigarettes 1 8 - 1987 Tobacco Cessation:Counseling Given: Not Answered Sex and Gender Information Value Date Recorded Sex Assigned at Male 10/21/2022 12:56 PM EDT Legal Sex Male 8:38 PM EDT Gender Identity Male 10/21/2022 12:56 PM EDT Sexual Orientation Straight 10/21/2022 12 :56 PM EDT Last Filed Vital Signs Vital Sign Reading Time Taken Comments Blood Pressure 104/74 11/02/2024 8:27 AM EDT Pulse - - Temperature 36.3 C (97.3 F) 11/02/2024 8:27 AM EDT Respiratory Rate - - Oxygen Saturation - - Inhaled Oxygen Concentration - - Weight - - Height - - Body Mass Index - - Plan of Treatment Upcoming Encounters Date Type Department Care Team (Renan st Contact Info) Description 04/18/2025 10:10 AM EDT Office Visit [facility] D[facility] [address] [place] [address] Tami Lindquist Health Maintenance Due Date Last Done Comments CT Colonography 1961 Colonoscopy 1961 Colorectal Cancer Screening 1961 Depression Screening 1961 FIT DNA/Cologuard 1961 FIT 1961 FOBT 1961 HIV Screening 1961 Lipid Panel 1961 SDOH Screening 1961 Sigmoidoscopy 1961 Disability Screening 1961 Alcohol/Substance Use Screening 1973 Hepatitis C Screening 12/15/1979 Pneumococcal Vaccine: 50+ Years (1 of 1 - PCV) 12/15/2011 Zoster Vaccines (1 of 2) 12/15/2011 DTaP/Tdap/Td Vaccines (2 - Td or Tdap) 12/30/2021 12/31/2011, 07/30/2008, 02/18/2005 COVID-19 Vaccine ( - season) 2024 Influenza Vaccine (#1) 2025 Dental X-Ray: Bitewings 03/09/2025 03/08/2024 Dental Oral Exam 04/15/2025 10/13/2024, 09/2023, 12/25/2022 Dental Prophylaxis 04/15/2025 10/13/2024, 0 03/08/2024, 08/12/2023, Additional history exists Tobacco Screening 11/02/2025 11/02/2024 Dental X-Ray: Full Mouth 03/09/2027 03/08/2024 RSV Patients and Patients Aged 60 years or older (1 - 1-dose 75+ series) 2036 HIB Vaccines Aged Out No longer eligi [...] patient's age to complete this topic Meningococcal Vaccine Aged Out No thomas joey eligible based on patient's age to complete this topic RSV under 20 months Aged Out No longe r eligible based on patient's age to complete this topic Rotavirus Vaccines Aged Out No longer eligible based on patient's age to complete this topic Procedures Procedure Name Priority Date/Time Associated Diagnosis Comments OCT, OPTIC NERVE - OU - BOTH EYES Routine 11/02/2024 Glaucoma suspect of both eyes CASE PRESENTATION, DETAILED AND EXTENSIVE TREATMENT PLANNING Routine 10/13/2024 8:30 AM EDT Full PROPHYLAXIS - ADULT Routine 10/13/2024 8:30 AM EDT PERIODIC ORAL EVALUATION - ESTABLISHED PATIENT Routine 10/13/2024 8:30 AM EDT INTRAORAL - COMPLETE SERIES OF RADIOGRAPHIC IMAGES Routine 03/08/2024 9:00 AM EDT from Last 3 Months or Most Recently Relevant to Health Maintenance Results * OCT, Optic Nerve - OU - Both Eyes (11/02/2024) Impressions Kathleen Santos, OD - 11/02/2024 Right eye (OD): RNFL/GCC normal and stable Left eye (OS): RNFL/GCC normal and stable Kathleen Santos OD OPHTH TOMOGRAPHY Final Result from Last 3 Months Insurance MEDICARE [facility] STANDARD DENTAL-[facility] MEDICAID STAND ADULT DENTAL - [facility] FULL (MEDICAID) MEDICARE [facility] STANDARD Care Teams Returned Telephone Equipment Appraiser Relationship Specialty Start Date End Date Eric Aquino Unassigned PCP - General Family Medicine 11/03/22
--- OUTSIDE RECORDS SUMMARY | 2025-01-11 09:03 | XMS_ITS | Clinical Summary ---
Author Organization [facility] [address] [facility] Address [address] [place] [address] Phone Care Team Providers Care Production Expert Name Role Phone Vick Choi MD Primary Care Provider [phone] Allergies Active Allergy Reactions Criticality Noted Date Comments Duloxetine Headache 04/06/2009 After 3 months - better with DC of drug Medications alfuzosin (UROXATRAL) 10 mg 24 hr tablet Take 1 Tablet by mouth daily. 4 Active azelastine (ASTELIN) 137 mcg (0.1 %) nasal spray 1 [place] by Each Nare route daily. 9 Active cyclobenzaprin e (FLEXERIL) 10 mg tablet TAKE 1 TO [...] lungs 2 times daily. 9 Active lisinopriL (PRINIVIL,ZEST RIL) 10 mg tablet TAKE 1 TABLET BY MOUTH EVERY DAY 90 tablet 1 5 Active oxyCODONE-acet aminophen (PERCOCET) 5-325 mg per tablet Take 1 tablet by mouth every 6 (six) hours if needed for severe pain. Max Daily Amount: 4 tablets 50 tablet 5 Active oxyCODONE-acet aminophen (PERCOCET) 5-325 mg per tablet Take 1 tablet by mouth every 6 (six) hours if needed for severe pain. Max Daily Amount: 4 tablets 50 tablet 5 12/20/19 25 Discontinu ed(Reorder ) Active Problems Problem Noted Date Diagnosed Date Elevated PSA 02/11/2024 Overview (05/26/2024): Minimally elevated PSA, under the setting of BPH, following with urology Dr. Higuera Inclusion cyst 02/20/2023 Lumbosacral spondylosis without myelopathy 07/20 Osteoarthritis, localized, elbow 02/25/2016 Sacroiliitis ([facility] V24) 10/20/2013 Overview (05/26/2024): History of recurrent [...] 9:45 AM EDT Office Visit Adult Medicine [address] [phone] Vick Choi MD Chest pain, unspecified type (Primary Dx); Rapid heart beat from Last 3 Months Immunizations Name Administration [...] COMMENT: bilateral OTHER SURGICAL HISTORY 07/20 PROCEDURE: HI BIOPSY PROSTATE INCISIONAL ANY APPROACH; COMMENT: negative [...] care for your loved ones. For example, child development professor or elderly care for an older adult? [...] 70 11/24/2024 9:38 AM EDT Temperature 36.3 C (97.3 F) 11/24/2024 9:38 AM EDT Respiratory Rate 20 11/24/2024 9:38 AM EDT [...] 11:15 AM EDT Office Visit Adult Medicine [facility] [address] [place] [address] Vick Choi MD [address] [place] [address] 06/14/2025 10:50 AM EST Office Visit [facility] [address] [place] [address] Milan Wan MD [address] [place] [address] [address] [place] [address] Health Maintenance Due Date Last Done Comments COVID-19 Vaccine (#1) 1965 Pneumococcal Vaccine: 50+ Years (1 of 1 - PCV) 12/15/2011 Zoster Vaccines (1 of 2) 12/15/2011 DTaP,Tdap,and Td Vaccines (4 - Td or Tdap) 12/30/2021 12/31/2011, 07/30/2008, 02/18/2005 Colorectal Cancer Screening: Colonoscopy 06/14/2022 HIV Screening 06/14/2022 Medicare Annual Wellness Visit 06/14/2022 Influenza Vaccine (#1) 2025 Depression Screening 07/08/2025 07/08/2024 Social Influencers [...] Procedure Name Priority Date/Time Associated Diagnosis Comments EXTERNAL CLINICAL LAB 12/13/2024 EXTERNAL CLINICAL LAB 12/13/2024 COMPREHENSIVE METABOLIC PANEL Routine 07/14/2024 12:01 PM EST Tachycardia Routine general medical examination at a [facility] LIPID PANEL Routine 07/18/2021 HEPATITIS C SCREENING Routine 09/20/2013 from Last 3 Months or Most Recently Relevant to Health Maintenance Results * External clinical lab (12/13/2024) Only the most recent of2 resultswithin the time period is included. Provider [facility] LAB BLOOD ORDERABLES Fin al Result * Comprehensive metabolic panel (07/14/2024 12:01 PM EST) Sodium 141 133 - 145 mmol/L LAB CHEMISTRY METHOD 07/14/2024 6:16 PM [facility] Potassium 3.9 3.5 - 5.5 mmol/L LAB CHEMISTRY METHOD 07/14/2024 6:16 PM [facility] Chloride 107 96 - 110 mmol/L LAB CHEMISTRY METHOD 07/14/2024 6:16 PM [facility] CO2 28 21 - 32 mmol/L LAB CHEMISTRY METHOD 07/14/2024 6:16 PM [facility] Anion Gap 6 3 - 11 LAB CHEMISTRY METHOD 07/14/2024 6:16 PM [facility] Glucose 99 70 - 100 mg/dL LAB CHEMISTRY METHOD 07/14/2024 6:16 PM [facility] BUN 12 5 - 25 mg/dL LAB CHEMISTRY METHOD 07/14/2024 6:16 PM [facility] Creatinine 0.87 0.70 - 1.30 mg/dL LAB CHEMISTRY METHOD 07/14/2024 6:16 PM [facility] eGFR 98 >=60 mL/min/1. 73m2 LAB CHEMISTRY METHOD 07/14/2024 6:16 PM [facility] Comment:Calculation based on the Chronic Kidney Disease Epidemiology Collaboration (CKD-EPI) equation refit without adjustment for race. BUN/Creatinine Ratio 13.8 LAB CHEMISTRY METHOD 07/14/2024 6:16 PM [facility] Calcium 9.4 8.5 - 10.5 mg/dL LAB CHEMISTRY METHOD 07/14/2024 6:16 PM [facility] AST (SGOT) 20 10 - 42 unit/L LAB CHEMISTRY METHOD 07/14/2024 6:16 PM [facility] ALT (SGPT) 21 10 - 60 unit/L LAB CHEMISTRY METHOD 07/14/2024 6:16 PM [facility] Alkaline Phosphatase 66 42 - 121 unit/L LAB CHEMISTRY METHOD 07/14/2024 6:16 PM [facility] Total Protein 7.1 6.0 - 8.0 g/dL LAB CHEMISTRY METHOD 07/14/2024 6:16 PM [facility] Albumin 4.5 3.2 - 5.0 g/dL LAB CHEMISTRY METHOD 07/14/2024 6:16 PM [facility] Total Bilirubin 0.9 0.0 - 1.4 mg/dL LAB CHEMISTRY METHOD 07/14/2024 6:16 PM [facility] Blood Venous blood specimen / Unknown Venipuncture / Unknown 07/14/2024 12:01 PM EST 07/14/2024 12:01 PM EST Vick Choi MD LAB BLOOD ORDERABLES Final Resul t [facility] [address] [place] [address], * Lipid panel (07/18/2021) LDL/HDL Ratio 2 0 - 4 Triglycerides 38 0 - 150 mg/dL Cholesterol 150 0 - 200 mg/dL HDL 64 >=40 mg/dL LDL Cholesterol 79 0 - 100 mg/dL Blood Venous blood specimen / Unknown Dee Morgan MD LAB BLOOD ORDERABLES Mae l Result * Hepatitis C Screening (09/20/2013) Hepatitis C Screening abstracted us Historical Provider HEALTH MAINTENANCE Final Result from Last 3 Months or Most Recently Relevant to Health Maintenance Insurance MEDICARE [place]ICAID [place] [employer] Care Teams Production Expert Relationship Specialty Start Date End Date Vick Choi MD [address] [place] [address] PCP - General 05/05/1999
[2025-01-11 09:04] VITALS: BP 115/72; PULSE 93; O2SAT 98; BMI 21.6
== END 2025-01-11 09:39 | disposition home or self-care (01) ==
LOC: HO.RHE 08:50
PROVIDERS: PCP Internal Medicine; Visit Provider Student in an Organized Health Care Education/Training Program
DX: M45.0 Ankylosing spondylitis of multiple sites in spine (principal); M79.7 Fibromyalgia; M54.2 Cervicalgia; Z51.81 Encounter for therapeutic drug level monitoring; Z79.620 Long term (current) use of immunosuppressive biologic
CPT/HCPCS: 99214; G2211

== ENCOUNTER → 2025-01-11 08:50 | Outpatient (BNVA) | payer MEDICARE, MEDICAID, SELFPAY | PROVIDERS: PCP Internal Medicine; Visit Provider Student in an Organized Health Care Education/Training Program | DX: M45.0 Ankylosing spondylitis of multiple sites in spine (principal); M79.7 Fibromyalgia; M54.2 Cervicalgia; Z79.620 Long term (current) use of immunosuppressive biologic | CPT/HCPCS: 99212 ==

== ENCOUNTER 2025-01-30 09:33 | Outpatient (AMB) | payer MEDICARE, MEDICAID, SELFPAY ==
--- NOTE | 2025-01-30 09:39 | MHC.OFFVIS ---
Vital Signs 01/30/25 09:44 Height 5 ft 6 in Weight 133 lb 2 oz BMI 21.5 BP 141/82 H Blood Pressure Location Rt brachial Position Sitting Pulse 82 Pulse Source Pulse Oximeter Pulse Oximetry (%) 97 Oxygen Delivery Method Room Air Intake Visit Reasons: Spondylosis without myelopathy, cervical reg Intake Note: Pain today 6/10 Checkroom Chief Required: No Accompanied by: Self / Same As Patient Allergies duloxetine (From Cymbalta) Allergy (Intermediate, Verified 01/30/25 09:43) increased pain HPI Comments Details: The patient is a 64-year-old male presenting with chronic neck and low back pain. The pain began following a work-related injury in 1992 when the patient was moving a heavy roll, resulting in a debilitating condition that led to permanent disability in 2013. The neck and back pain is described as throbbing, stabbing, burning, tingling, spasming, aching and sharp, with a severity of 8/10 in the morning, improving to 4/10 by evening. Neck pain is worse with sides rotations and bending or flexing down accompanied by chronic headaches. Back pain is worse with most movements and least severe with rest. Pain affects his daily activities, functioning, mobility, sleep and quality of life. The patient has a history of polyarticular osteoarthritis, fibromyalgia, and ankylosing spondylitis, with questionable sacroiliitis noted on previous spine imaging which are not available for review today. He has been on Enbrel with some improvement for ankylosing spondylitis and reports using a TENS unit, Tylenol, cyclobenzaprine, and Percocet for pain management. The patient reports caffeine-induced palpitations and hypertension, potentially exacerbated by caffeine pill use. He denies the use of alcohol, tobacco, marijuana, or illicit drugs. - Onset: Began in 1992 following a work-related injury, chronic neck and back pain; widespread body pain - Quality: Throbbing, stabbing, sharp, cramping, burning, tingling, spasming, aching, heavy, tiring - Severity: 8/10 in the morning, improving to 4/10 by evening - Location: Low back, with radiation to hips and buttocks, neck pain - Exacerbating factors: Standing, sitting for prolonged periods, twisting, changing positions, lifting, weather changes - Relieving factors: Cyclobenzaprine, TENS unit, rest - Interference: Affects sleep, daily activities, and functioning - Affect: Pain impacts daily activities and functioning, causing significant discomfort - Analgesia: Current medications include Enbrel, cyclobenzaprine, and Percocet; pain level is 6/10 currently, with a goal to reduce further - Adverse Effects: Reports caffeine-induced palpitations, possibly related to caffeine pill use - Activities of Daily Living: Pain affects ability to perform yard work and other activities - Aberrant Drug Related Behaviors: No evidence of misuse or abuse of prescribed medications Oswestry Low Back Pain Disability Score=25 Oswestry Neck Pain Disability Score=28 [facility] Medical History Ankylosing spondylitis Fatigue BPH (benign prostatic hyperplasia) GERD (gastroesophageal reflux disease) Hypertension History of iritis Fibromyalgia Osteoarthritis of lumbar spine Cervical osteoarthritis Spondylarthritis Family History Mother Hypertension Father Hypertension Diabetes Sister Hypertension Social History Household Members: Spouse Housing: House Are you a primary care manager cna to a significant other at home: No Do you presently have visiting nurse or other home services: No 75 years or older and lives alone: No Alcohol intake: never Patient Tobacco Use Status: Former Tobacco user Years Smoked: Quit 1997 e-Cigarette/Vaping Use: Never Used service: No Current occupational status: retired and disabled Review of Systems Const Details: - Musculoskeletal: Reports chronic low back pain, limited neck movement, and tenderness with spasming - Cardiovascular: Reports palpitations, denies chest pain - Neurological: Denies numbness or tingling, bladder or bowel dysfunction, weakness, or saddle anesthesia All systems reviewed & are unremarkable except as noted in HPI and below Physical Exam Vital Signs: Last Vital Signs Pulse 82 01/30/25 09:44 BP 141/82 H 01/30/25 09:44 Pulse Ox 97 01/30/25 09:44 Oxygen Delivery Method Room Air 01/30/25 09:44 BMI result Body Mass Index 21.5 General: Appears afebrile. Alert and oriented. Mood and affect appropriate. Follows and participates in conversation appropriately. Respiratory effort is unlabored. No cough. Able to transition from sit to stand unassisted. Ambulates with bilaterally normal heel strike and toe off. Neck Neck: Yes normal visual inspection, Yes full ROM, Yes no lymphadenopathy, Yes supple, No anterior neck swelling, No prominent supraclavicular fat pad and Yes prominent dorsocervical fat pad (mild) General: Yes no CVA tenderness Back/Spine/Pelvis Other: Limited lumbar ROM due to pain. Normal gait, no limping. Demonstrates 5/5 strength of quadriceps bilaterally as well as flexion/dorsiflexion of bilateral feet against resistance. 2+ pedal pulses bilaterally. Straight leg rise with dorsiflexion negative bilaterally. +2 patellar and achilles reflexes bilaterally. Facet loading test positive bilaterally. Sulma sign, Boris?s, Pelvic compression and Stinchfield tests are positive bilaterally. No groin pain with I/E hip rotations. Valsalva maneuver negative. Back: no CVA tenderness Cervical Spine: cervical ROM normal, loss of normal cervical lordosis, cervical muscular tenderness, pain with cervical ROM, No Cervical spine tenderness and No step off deformity Thoracic/Lumbar Spine: thoracic and lumbar spine normal to inspection, No Thoracic/lumbar spine scar(s), Lasegue's sign negative, straight leg raise negative bilaterally, pain with thoraco-lumbar ROM, paraspinal muscle tenderness, thoraco-lumbar ROM limited, Thoracic/lumbar scoliosis, No thoracic spinal tenderness and lumbar spinal tenderness (L4-S1) Pelvis: buttock tenderness bilaterally Sacroiliac joints: bilaterally tender to palpation Extrem General: Yes capillary refill normal, Yes no clubbing, cyanosis or edema and Yes no calf tenderness Results Reviewed Results Reviewed: XR CERVICAL SPINE 01/30/25 CLINICAL INFORMATION: M47.812 - Spondylosis without myelopathy or radiculopathy, cervical region FINDINGS: Craniocervical junction is intact. Multilevel small marginal osteophyte formation and endplate sclerosis with decreased intervertebral disc height C3 C7 pronounced at C5-6 and C6-7 levels. No acute cortical disruption or malalignment. Bilateral neuroforamina narrowing/stenosis secondary to marginal osteophyte formation from C3-4 to C6-7 levels. Osteopenia versus osteoporosis. Upper airway is patent. IMPRESSION: Multilevel spondylosis, moderate, worsened C5-6 and C6-7 XR lumbar spine 4V min 01/30/25 CLINICAL INFORMATION: Spondylosis without myelopathy or radiculopathy, lumbar region. TECHNIQUE: AP, obliques and lateral views.. COMPARISON: None FINDINGS: Zhen type I sacralization. Multilevel endplate sclerosis and small marginal osteophyte formation throughout the axial skeleton. Widening of the anterior aspect of the intervertebral disc L5-S1/sacralized vertebra. Prominent left transverse processes of sacralized vertebra with pseudoarthrosis the sacrum. No acute cortical disruption. No gross malalignment. No lytic or blastic lesions. Osteopenia versus osteoporosis. Vascular calcifications, aorta. S-shaped curvature of the thoracolumbar spine. IMPRESSION: Multilevel thoracolumbar spondylosis. Left-sided Bertolotti syndrome cannot be excluded. XR SACROILIAC JOINTS 01/30/25 CLINICAL INFORMATION: M45.0 - Ankylosing spondylitis of multiple sites in spine COMPARISON: None available. TECHNIQUE: 3 views of the sacroiliac joints FINDINGS: Prominent left transverse processes articulating with the sacrum. No acute cortical disruption. No gross lytic or blastic lesions. Degenerative changes in the symphysis pubis. IMPRESSION: No acute fracture. 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 Assessment & Plan Assessment & Plan (1) Cervical osteoarthritis: Code(s): M47.812 - Spondylosis without myelopathy or radiculopathy, cervical region Category: Medical (2) Osteoarthritis of lumbar spine: Code(s): M47.816 - Spondylosis without myelopathy or radiculopathy, lumbar region Category: Medical (3) Ankylosing spondylitis: Comment: + HLA b27. Recurrent iritis. Questionable sacroiliitis on SI joint films but there was some SI joint bone edema on MRI. 2013[facility] started with some improvement Code(s): M45.9 - Ankylosing spondylitis of unspecified sites in spine Category: Medical Qualifiers: Ankylosing spondylitis location: multiple sites in spine Qualified Code(s): M45.0 - Ankylosing spondylitis of multiple sites in spine (4) Chronic neck and back pain: Code(s): M54.2 - Cervicalgia; M54.9 - Dorsalgia, unspecified; G89.29 - Other chronic pain Category: Medical (5) Sacroiliac joint pain: Code(s): M53.3 - Sacrococcygeal disorders, not elsewhere classified Category: Medical (6) Sacroiliitis: Code(s): M46.1 - Sacroiliitis, not elsewhere classified Category: Medical (7) Osteoarthritis of lumbar spine: Code(s): M47.816 - Spondylosis without myelopathy or radiculopathy, lumbar region Category: Medical (8) Chronic neck and back pain: Code(s): M54.2 - Cervicalgia; M54.9 - Dorsalgia, unspecified; G89.29 - Other chronic pain Category: Medical (9) Cervical osteoarthritis: Code(s): M47.812 - Spondylosis without myelopathy or radiculopathy, cervical region Category: Medical (10) Ankylosing spondylitis: Comment: + HLA b27. Recurrent iritis. Questionable sacroiliitis on SI joint films but there was some SI joint bone edema on MRI. 2014 Enbrel started with some improvement Code(s): M45.9 - Ankylosing spondylitis of unspecified sites in spine Category: Medical Qualifiers: Ankylosing spondylitis location: multiple sites in spine Qualified Code(s): M45.0 - Ankylosing spondylitis of multiple sites in spine (11) Osteoarthritis of lumbar spine: Code(s): M47.816 - Spondylosis without myelopathy or radiculopathy, lumbar region Category: Medical (12) Chronic neck and back pain: Code(s): M54.2 - Cervicalgia; M54.9 - Dorsalgia, unspecified; G89.29 - Other chronic pain Category: Medical (13) Sacroiliac joint pain: Code(s): M53.3 - Sacrococcygeal disorders, not elsewhere classified Category: Medical (14) Fibromyalgia: Comment: Dx 1994, tried on SSRI, welbutrin, Provigil (insurance will not cover), Nata gave him headaches Some improvement with Cymbalta 30bid (10/12-02/11) but developed headache and stopped it. Savella not Helpful 2008 Code(s): M79.7 - Fibromyalgia Category: Medical Plan The plan includes initiating physical therapy specifically for the neck while avoiding it for the back due to pain exacerbation. Updated x-ray imaging were conducted to assess the current status of the spine and joints after today's visit, results are noted above. Potential interventions if no improvement with PT were discussed include SI joint steroidal injections, peripheral nerve stimulation, and radiofrequency ablation, depending on the results of diagnostic nerve blocks. Informational pamphlets were provided to patient. The patient is advised to continue current medications, including cyclobenzaprine, Tylenol and Percocet, and to maintain the use of an SI joint belt. Lifestyle modifications such as avoiding caffeine pills to manage hypertension and heart palpitations. Continue engaging in daily physical activities as tolerated for overall health and chronic neck and back pain. All questions and concerns have been answered and patient agreed with the plan. Follow up after PT and sooner as needed. Patient was informed and verbally consented to the use of an ambient scribe for clinic note documentation during this visit. Orders: Orders XR cervical spine 4V Today G89.29 - Other chronic pain, M45.0 - Ankylosing spondylitis of multiple sites in spine, M47.812 - Spondylosis without myelopathy or radiculopathy, cervical region, M54.2 - Cervicalgia, M54.9 - Dorsalgia, unspecified XR lumbar spine 4V min Today G89.29 - Other chronic pain, M47.816 - Spondylosis without myelopathy or radiculopathy, lumbar region, M54.2 - Cervicalgia, M54.9 - Dorsalgia, unspecified XR sacroiliac joint min 3V Today M45.0 - Ankylosing spondylitis of multiple sites in spine, M46.1 - Sacroiliitis, not elsewhere classified, M53.3 - Sacrococcygeal disorders, not elsewhere classified PT Evaluation and Treatment Today G89.29 - Other chronic pain, M45.0 - Ankylosing spondylitis of multiple sites in spine, M47.812 - Spondylosis without myelopathy or radiculopathy, cervical region, M47.816 - Spondylosis without myelopathy or radiculopathy, lumbar region, M53.3 - Sacrococcygeal disorders, not elsewhere classified, M54.2 - Cervicalgia, M54.9 - Dorsalgia, unspecified, M79.7 - Fibromyalgia Medications: New lidocaine 5% 1 patch topical DAILY 30 ea 0RF pain 30 days G89.29 - Other chronic pain, M45.0 - Ankylosing spondylitis of multiple sites in spine, M47.812 - Spondylosis without myelopathy or radiculopathy, cervical region, M47.816 - Spondylosis without myelopathy or radiculopathy, lumbar region, M54.2 - Cervicalgia, M54.9 - Dorsalgia, unspecified Coding Level of Care Code New Pt Level 4 (92594) Diagnoses Cervical osteoarthritis M47.812 Osteoarthritis of lumbar spine M47.816 Ankylosing spondylitis of multiple sites in spine M45.0 Ankylosing spondylitis location: multiple sites in spine Chronic neck and back pain M54.2; M54.9; G89.29 Sacroiliac joint pain M53.3 Sacroiliitis M46.1 Fibromyalgia M79.7
[2025-01-30 09:44] VITALS: BP 141/82; PULSE 82; O2SAT 97; BMI 21.5
--- OUTSIDE RECORDS SUMMARY | 2025-01-30 10:28 | XMS_ITS | Clinical Summary ---
Author Organization [facility] Address [address] [place] [id number] Phone Care Team Providers Care Telehealth Nurse Name Role Phone Vick Choi MD Primary Care Provider Social History Tobacco Use Types Packs/Day Years Used Date Smoking Tobacco: Never Assessed Education Answer Date Recorded Are you interested in more education? Not on jennifer e 10/31/2022 Are you concerned about learning? Not on file 10/31/2022 No 10/31/2022 No 10/31/2022 Digital Access Answer Date Recorded No 12/02/2022 No 12/02/2022 Reliable internet access at home? Not on file 12/02/2022 Device with a working camera? Not on file Sex and Gender Information Value Date Recorded Sex Assigned at Not on file Legal Sex Male 11:16 AM EST Gender Identity Not on file Sexual Orientation Not on file Plan of Treatment Health Maintenance Due Date Last Done Comments Adult Td,Tdap Booster 1961 LIPID PANEL 1961 DEPRESSION SCREENING 1973 SMOKING Hx and SMOKELESS TOB ACCO SCREENING 1974 HEPATITIS C SCREENING 12/15/1979 HIV ONE-TIME SCREENING (18-6 5 YEARS) 12/15/1979 COLOGUARD 2006 COLONOSCOPY 2006 COLORECTAL CANCER SCREENING 2006 FIT TEST 2006 FOBT 2006 SIGMOIDOSCOPY 2006 VIRTUAL COLONOSCOPY 2006 PNEUMOCOCCAL VACCINES (50+ y ears) (1 of 1 - PCV) 12/15/2011 ZOSTER VACCINES (1 of 2) 12/15/2011 COVID-19 VACCINE (2023-2 5 season) 2024 RSV VACCINE (1 - 1-dose 75+ series) 2036 HEPATITIS A VACCINES Aged Out No long er eligible based on patient's age to complete this topic HIB VACCINES Aged Out No longer eligi ble based on patient's age to complete this topic MENINGOCOCCAL VACCINES (ACWY) Aged Out No longer eligible based on patient's age to complete this topic MENINGOCOCCAL VACCINES (B) Aged Out N o longer eligible based on patient's age to complete this topic Medical Devices Not on file Insurance MEDICARE PART A & B [facility] MEDICARE PART A & B MEDICARE PART A & B MEDICARE PART A & B Member Subscriber Plan / Payer (Ef fective 2016-Present) Name:Moises Ambrose Member ID:[id number] Relation to Subscriber:Self Name:Moises Ambrose Subscriber ID:[id number] Payer ID:[id number] Group ID:Not on file Type:Medicare Address: [employer] [address] [place] [phone] [facility] MEDICARE PART A & B HEALTH MEDICARE PART A & B Member Subscriber Plan / Payer (Ef fective 2016-Present) Name:Moises Ambrose Member ID:[id number] Relation to Subscriber:Self Name:Moises Ambrose Subscriber ID:[id number] Payer ID:[id number] Group ID:Not on file Type:Medicare Address: [facility] [employer] [facility] [employer] [facility] [address] [place] [phone] [facility] PART [facility] & [facility] A & B [facility] Care Teams Telehealth Nurse Relationship Specialty Start Date End Date Vick Choi MD [address] [place] [address] PCP - General Internal Medicine 07/24/21 Additional Source Comments The information contained in this document represents components of the legal health record. It is not the complete legal health record.[facility]
--- OUTSIDE RECORDS SUMMARY | 2025-01-30 10:28 | XMS_ITS | Clinical Summary ---
Author Organization [employer] Address [address] [place] [address] Care Team Providers Care Auditor Supervisor Name Role Phone PcpEric Unassigned Primary Care [...] Description 11/02/2024 8:30 AM EDT Office Visit [facility] OPTOMETRY [address] [place] [address] Kathleen Santos, LOUISE Glaucoma suspect of both eyes (Primary Dx); Presbyopia of both eyes from Last 3 Months Family History Medical History Relation Name Comments sister iritis infections Other Relation Name Status Comments Father Mother Other Social History Tobacco Use Types Packs/Day Years Used Date Smoking Tobacco: Former Cigarettes 1987 Tobacco Cessation:Counseling Given: Not Answered Sex [...] Care Team (Late st Contact Info) Description 04/18/2025 10:10 AM EDT Office Visit [facility] DENTAL [address] [place] [address] Tami Lindquist Health Maintenance Due Date Last [...] Routine 11/02/2024 Glaucoma suspect of both eyes Full PROPHYLAXIS - ADULT Routine 10/13/2024 8:30 [...] Result from Last 3 Months Insurance MEDICARE [facility] DENTAL-[facility] MEDICAID STAND ADULT DENTAL - [facility] FULL (MEDICAID) MEDIC[place] [address] [place] [address] [place] [id number] [facility] Care Teams Auditor Supervisor Relationship Specialty Start Date End Date Eric Aquino Unassigned PCP - General Family Medicine 11/03/22
--- OUTSIDE RECORDS SUMMARY | 2025-01-30 10:28 | XMS_ITS ---
Author Name [facility] Organization Unknown Care Team Organization Name Specialty Phone Email Start Date End Da te [facility]oi Primary [facility] 05/13/2022 02/22/2024
--- OUTSIDE RECORDS SUMMARY | 2025-01-30 10:28 | XMS_ITS | Encounter Summary ---
Author Organization [facility] Address [address] [place] [address] Care Team Providers Care Ssis Architect Name Role Phone Vick Choi MD Primary Care Provider Encounter Details Date Type Department Care Team Description 06/06/2013 Refill Rheumatology - [address] [address] [place] Valerio MD Social History Tobacco Use [...] on filedocumented in this encounter Care Teams Ssis Architect Relationship Specialty Start Date End Date Vick Choi MD [address] [place] [id number] PCP - General 05/05/1999 documented as of this encounter
== END 2025-01-30 10:28 | disposition home or self-care (01) ==
LOC: HO.PMC 09:37
PROVIDERS: PCP Internal Medicine; Referring Provider Student in an Organized Health Care Education/Training Program; Visit Provider Nurse Practitioner Family
DX: M47.812 Spondylosis without myelopathy or radiculopathy, cervical region (principal); M47.816 Spondylosis without myelopathy or radiculopathy, lumbar region; M45.0 Ankylosing spondylitis of multiple sites in spine; M54.2 Cervicalgia; M54.9 Dorsalgia, unspecified; G89.29 Other chronic pain; M53.3 Sacrococcygeal disorders, not elsewhere classified; M46.1 Sacroiliitis, not elsewhere classified; M79.7 Fibromyalgia
CPT/HCPCS: 99204

== ENCOUNTER 2025-01-30 09:33 | Outpatient (REF) | payer MEDICARE, MEDICAID, SELFPAY ==
--- NOTE | ~2025-01-30 | XR_ITS ---
EXAMINATION: XR CERVICAL SPINE CLINICAL INFORMATION: M47.812 - Spondylosis without myelopathy or radiculopathy, cervical region COMPARISON: None available. TECHNIQUE: AP oblique and lateral views. Atlantoodontoid view. FINDINGS: Craniocervical junction is intact. Multilevel small marginal osteophyte formation and endplate sclerosis with decreased intervertebral disc height C3 C7 pronounced at C5-6 and C6-7 levels. No acute cortical disruption or malalignment. Bilateral neuroforamina narrowing/stenosis secondary to marginal osteophyte formation from C3-4 to C6-7 levels. Osteopenia versus osteoporosis. Upper airway is patent. XR/XR cervical spine 4V IMPRESSION: Multilevel spondylosis, moderate, worsened C5-6 and C6-7 Electronically signed by: Acosta Concepcion MD 01/30/2025 12:11 PM EDT
--- NOTE | ~2025-01-30 | XR_ITS ---
EXAMINATION: X-ray lumbar spine. CLINICAL INFORMATION: Spondylosis without myelopathy or radiculopathy, lumbar region. TECHNIQUE: AP, obliques and lateral views.. COMPARISON: None FINDINGS: Zhen type I sacralization. Multilevel endplate sclerosis and small marginal osteophyte formation throughout the axial skeleton. Widening of the anterior aspect of the intervertebral disc L5-S1/sacralized vertebra. Prominent left transverse processes of sacralized vertebra with pseudoarthrosis the sacrum. No acute cortical disruption. No gross malalignment. No lytic or blastic lesions. Osteopenia versus osteoporosis. Vascular calcifications, aorta. S-shaped curvature of the thoracolumbar spine. XR/XR lumbar spine 4V min IMPRESSION: Multilevel thoracolumbar spondylosis. Left-sided Bertolotti syndrome cannot be excluded. Electronically signed by: Acosta Concepcion MD 01/30/2025 12:08 PM EDT
--- NOTE | ~2025-01-30 | XR_ITS ---
EXAMINATION: XR SACROILIAC JOINTS CLINICAL INFORMATION: M45.0 - Ankylosing spondylitis of multiple sites in spine COMPARISON: None available. TECHNIQUE: 3 views of the sacroiliac joints FINDINGS: Prominent left transverse processes articulating with the sacrum. No acute cortical disruption. No gross lytic or blastic lesions. Degenerative changes in the symphysis pubis. XR/XR sacroiliac joint min 3V IMPRESSION: No acute fracture. 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 Electronically signed by: Acosta Concepcion MD 01/30/2025 12:09 PM EDT
== END 2025-01-30 09:34 | disposition home or self-care (01) ==
LOC: HO.XRAY 09:33
PROVIDERS: PCP Internal Medicine; Referring Provider Student in an Organized Health Care Education/Training Program; Visit Provider Nurse Practitioner Family
DX: M47.812 Spondylosis without myelopathy or radiculopathy, cervical region (principal); M54.2 Cervicalgia; M54.9 Dorsalgia, unspecified; G89.29 Other chronic pain; M45.0 Ankylosing spondylitis of multiple sites in spine; M47.816 Spondylosis without myelopathy or radiculopathy, lumbar region; M53.3 Sacrococcygeal disorders, not elsewhere classified; M46.1 Sacroiliitis, not elsewhere classified
CPT/HCPCS: 72050; 72110; 72202; 99202

== ENCOUNTER → 2025-01-30 10:32 | Outpatient (BNV) | payer MEDICARE, MEDICAID, SELFPAY | PROVIDERS: PCP Internal Medicine; Referring Provider Student in an Organized Health Care Education/Training Program; Visit Provider Radiology Diagnostic Radiology | DX: M47.812 Spondylosis without myelopathy or radiculopathy, cervical region (principal); M47.815 Spondylosis without myelopathy or radiculopathy, thoracolumbar region; M53.3 Sacrococcygeal disorders, not elsewhere classified | CPT/HCPCS: 72050; 72110; 72202 ==